=== PATIENT | female | born 2005 | race Caucasian/White ===

== ENCOUNTER 2023-09-27 13:05 | Outpatient (REF) | payer OTHER, SELFPAY ==
[2023-09-27 13:08] LABS: MANUAL DIFF FLAG NO
[2023-09-27 13:13] LABS: Appearance Urine Clear; Color Urine Yellow; Glucose Urine UA Negative (Negative); Leukocyte Esterase Urine Negative (Negative); Nitrite Urine Negative (Negative); PH 7.5 (5.0-9.0); Specific Gravity - Urine 1.015 (1.005-1.025); Urine Blood Negative (Negative); Urine Ketones Negative (Negative); Urine Protein Negative (Neg-Trace)
[2023-09-27 13:14] LABS: Basophils Absolute Auto 0.1 X10*3/uL (0.0-0.2); Basophils Percent Auto 1.1 % (0-2); Eosinophils Absolute Auto 0.1 X10*3/uL (0.0-0.4); Eosinophils Percent Auto 3.2 % (0-4); Hematocrit 37.7 % (37.0-47.0); Hemoglobin 11.8 g/dl (12.0-16.0); Imm Gran Abs Auto 0.01 X10*3/uL (0.00-0.03); Imm Gran Pct Auto 0.2 % (0.0-0.4); Lymphocytes Absolute Auto 1.5 X10*3/uL (1.2-4.9); Lymphocytes Percent Auto 34.9 % (20-40); Mean Corpuscular HGB Conc 31.3 g/dl (31.0-35.0); Mean Corpuscular Hemoglobin 25.9 pg (27.0-33.0); Mean Corpuscular Volume 82.7 fL (80.0-98.0); Mean Platelet Volume 10.8 fL (9.4-12.3); Monocytes Absolute Auto 0.4 X10*3/uL (0.1-1.2); Monocytes Percent Auto 8.9 % (2-11); Neutrophils Absolute Auto 2.3 x10*3/uL (2.0-8.3); Neutrophils Percent Auto 51.7 % (45-73); Platelet Count 267 X10*3/uL (160-400); Red Blood Count 4.56 X10*6/uL (4.20-5.50); Red Cell Distribution Width 14.5 % (11.0-16.0); White Blood Count 4.4 X10*3/uL (4.8-10.8)
[2023-09-27 13:44] LABS: Alanine Aminotransferase 11 U/L (0-31); Albumin Level 4.5 g/dL (3.5-5.0); Alkaline Phosphatase 41 U/L (39-117); Anion Gap 13 (12-20); Aspartate Amino Transferase 19 U/L (5-31); Bilirubin Total 0.5 mg/dL (0.0-1.0); Blood Urea Nitrogen 11 mg/dL (9-16); Calcium 9.9 mg/dL (8.4-10.2); Carbon Dioxide 24 mmol/L (22-29); Chloride 105 mmol/L (96-108); Estimated Glomerular Filt Rate > 60; Glucose Fasting 87 mg/dL (60-99); Potassium 4.2 mmol/L (3.3-5.1); Sodium 138 mmol/L (135-145); Total Protein 7.8 g/dL (6.5-8.0)
[2023-09-27 13:59] LABS: TSH reflex Free T4 1.07 uIU/mL (0.32-4.0)
== END 2023-09-27 13:06 | disposition home or self-care (01) ==
LOC: HO.LNP 13:05
PROVIDERS: Visit Provider Internal Medicine
DX: F41.9 Anxiety disorder, unspecified (principal)
CPT/HCPCS: 80053; 81003; 84443; 85025

== ENCOUNTER 2023-11-29 12:22 | Outpatient (REF) | payer OTHER, SELFPAY ==
[2023-11-29 12:25] LABS: MANUAL DIFF FLAG NO
[2023-11-29 12:38] LABS: Basophils Percent Auto 0.5 % (0-2); Eosinophils Absolute Auto 0.3 X10*3/uL (0.0-0.4); Eosinophils Percent Auto 4.8 % (0-4); Hematocrit 33.9 % (37.0-47.0); Hemoglobin 10.6 g/dl (12.0-16.0); Imm Gran Abs Auto 0.01 X10*3/uL (0.00-0.03); Imm Gran Pct Auto 0.2 % (0.0-0.4); Lymphocytes Absolute Auto 2.5 X10*3/uL (1.2-4.9); Lymphocytes Percent Auto 44.1 % (20-40); Mean Corpuscular HGB Conc 31.3 g/dl (31.0-35.0); Mean Corpuscular Hemoglobin 26.5 pg (27.0-33.0); Mean Corpuscular Volume 84.8 fL (80.0-98.0); Mean Platelet Volume 10.5 fL (9.4-12.3); Monocytes Absolute Auto 0.4 X10*3/uL (0.1-1.2); Monocytes Percent Auto 7.3 % (2-11); Neutrophils Absolute Auto 2.4 x10*3/uL (2.0-8.3); Neutrophils Percent Auto 43.1 % (45-73); Platelet Count 241 X10*3/uL (160-400); Red Cell Distribution Width 14.6 % (11.0-16.0); White Blood Count 5.6 X10*3/uL (4.8-10.8)
== END 2023-11-29 12:23 | disposition home or self-care (01) ==
LOC: HO.LNP 12:22
PROVIDERS: Visit Provider Internal Medicine
DX: D72.819 Decreased white blood cell count, unspecified (principal)
CPT/HCPCS: 85025

== ENCOUNTER 2023-12-06 11:43 | Outpatient (REF) | payer OTHER, SELFPAY ==
[2023-12-06 11:47] LABS: MANUAL DIFF FLAG NO
[2023-12-06 11:50] LABS: Basophils Percent Auto 0.6 % (0-2); Eosinophils Absolute Auto 0.2 X10*3/uL (0.0-0.4); Eosinophils Percent Auto 4.1 % (0-4); Hematocrit 36.9 % (37.0-47.0); Hemoglobin 11.4 g/dl (12.0-16.0); Imm Gran Abs Auto 0.01 X10*3/uL (0.00-0.03); Imm Gran Pct Auto 0.2 % (0.0-0.4); Lymphocytes Absolute Auto 1.9 X10*3/uL (1.2-4.9); Lymphocytes Percent Auto 41.4 % (20-40); Mean Corpuscular HGB Conc 30.9 g/dl (31.0-35.0); Mean Corpuscular Hemoglobin 26.1 pg (27.0-33.0); Mean Corpuscular Volume 84.6 fL (80.0-98.0); Mean Platelet Volume 10.7 fL (9.4-12.3); Monocytes Absolute Auto 0.4 X10*3/uL (0.1-1.2); Monocytes Percent Auto 8.8 % (2-11); Neutrophils Absolute Auto 2.1 x10*3/uL (2.0-8.3); Neutrophils Percent Auto 44.9 % (45-73); Platelet Count 283 X10*3/uL (160-400); Red Blood Count 4.36 X10*6/uL (4.20-5.50); Red Cell Distribution Width 14.2 % (11.0-16.0); White Blood Count 4.7 X10*3/uL (4.8-10.8)
[2023-12-06 12:08] LABS: Iron 58 mcg/dL (30-160); Percent Iron Saturation 16 % (15-50); Total Iron Binding Capacity 358 mcg/dL (228-428); Unsaturated Iron Binding 300 ug/dL
== END 2023-12-06 11:44 | disposition home or self-care (01) ==
LOC: HO.LNP 11:43
PROVIDERS: Visit Provider Internal Medicine
DX: D64.9 Anemia, unspecified (principal)
CPT/HCPCS: 83540; 85025

== ENCOUNTER 2024-04-03 15:14 | Outpatient (REF) | payer OTHER, SELFPAY ==
--- OUTSIDE RECORDS SUMMARY | 2024-04-03 19:01 | XMS_ITS | Patient Health Record ---
Author Organization Primo Acuna MD Address [address] [place], [place] [address] Care Team Providers Care Crankshaft Balancer Name Role Phone Primo Acuna Primary Care Provider [phone] Allergies No Known Allergies Results Component Value Reference Range Notes Urinalysis Reviewed date:09/27/2023 04:43:34 PM Interpretation: Performing Lab:[facility], [address] [place] [phone] Notes/Report: Color Urine Yellow Appearance Urine Clear PH 7.5 5.0-9.0 Glucose Urine UA Negative Negative mg/dL Urine Blood Negative Negative Specific Col[place]idge - Urine 1.015 1.005-1.025 Urine Protein Negative Neg-Trace mg/dL Urine Ketones Negative Negative mg/dL Nitrite Urine Negative Negative Leukocyte Esterase Urine Negative Negative Hold Gold Reviewed date:09/27/2023 04:42:17 PM Interpretation: Performing Lab:[facility], [address] [place] [phone] Notes/Report: Seymour Gold See Note Specimen held untested for 24 hours; Call to request Chemistry testing. Complete Blood Count Auto Di ff Reviewed date:09/30/2023 08:43:20 AM Interpretation: Performing Lab:[facility], [address] [place] [phone] Notes/Report: White Blood Count 4.4 4.8-10.8 X10*3/uL Red Blood Count 4.56 4.20-5.50 X10*6/uL Hemoglobin 11.8 12.0-16.0 g/dl Hematocrit 37.7 37.0-47.0 % Mean Corpuscular Volume 82.7 80.0-98.0 fL Mean Corpuscular Hemoglobin 25.9 27.0-33.0 pg Mean Corpuscular HGB Conc 31.3 31.0-35.0 g/dl Red Cell Distribution Width 14.5 11.0-16.0 % Platelet Count 267 160-400 X10*3/uL Mean Platelet Volume 10.8 9.4-12.3 fL Neutrophils Percent Auto 51.7 45-73 % Imm Gran Pct Auto 0.2 0.0-0.4 % Lymphocytes Percent Auto 34.9 20-40 % Monocytes Percent Auto 8.9 2-11 % Eosinophils Percent Auto 3.2 0-4 % Basophils Percent Auto 1.1 0-2 % NRBC Pct Auto 0.0 0.0-0.2 /100WBC Neutrophils Absolute Auto 2.3 2.0-8.3 x10*3/u L Imm Gran Abs Auto 0.01 0.00-0.03 X10*3/uL Lymphocytes Absolute Auto 1.5 1.2-4.9 X10*3/u L Monocytes Absolute Auto 0.4 0.1-1.2 X10*3/uL Eosinophils Absolute Auto 0.1 0.0-0.4 X10*3/u L Basophils Absolute Auto 0.1 0.0-0.2 X10*3/uL NRBC Abs Auto 0.000 0.0-0.012 X10*3/uL Comprehensive [place]. Panel Fa st Reviewed date:09/27/2023 04:43:49 PM Interpretation: Performing Lab:[facility], [address] [place] [phone] Notes/Report: Sodium 138 135-145 mmol/L Potassium 4.2 3.3-5.1 mmol/L Chloride 105 96-108 mmol/L Carbon Dioxide 24 22-29 mmol/L Anion Gap 13 12-20 Blood Urea Nitrogen 11 9-16 mg/dL Creatinine 0.84 0.5-1.4 mg/dL Estimated Glomerular Filt Rate > 60 NOTE: For -Gabonese individuals, multiply the result by 1.210. Chronic Kidney Disease: Estimated GFR < 60 mL/min/1.73m2 Severe Kidney Disease: Estimated GFR < 15 mL/min/1.73m2 Glucose Fasting 87 60-99 mg/dL Calcium 9.9 8.4-10.2 mg/dL Bilirubin Total 0.5 0.0-1.0 mg/dL Aspartate Amino Transferase 19 5-31 U/L Alanine Aminotransferase 11 0-31 U/L Total Protein 7.8 6.5-8.0 g/dL Albumin Level 4.5 3.5-5.0 g/dL Alkaline Phosphatase 41 39-117 U/L TSH reflex Free T4 Reviewed date:09/27/2023 04:43:56 PM Interpretation: Performing Lab:[facility], [address] [place] [phone] Notes/Report: TSH reflex Free T4 1.07 0.32-4.0 uIU/mL Complete Blood Count Auto Di ff Reviewed date:12/02/2023 09:47:15 AM Interpretation: Performing Lab:[facility], [address] [place] [phone] Notes/Report: White Blood Count 5.6 4.8-10.8 X10*3/uL Red Blood Count 4.00 4.20-5.50 X10*6/uL Hemoglobin 10.6 12.0-16.0 g/dl Hematocrit 33.9 37.0-47.0 % Mean Corpuscular Volume 84.8 80.0-98.0 fL Mean Corpuscular Hemoglobin 26.5 27.0-33.0 pg Mean Corpuscular HGB Conc 31.3 31.0-35.0 g/dl Red Cell Distribution Width 14.6 11.0-16.0 % Platelet Count 241 160-400 X10*3/uL Mean Platelet Volume 10.5 9.4-12.3 fL Neutrophils Percent Auto 43.1 45-73 % Imm Gran Pct Auto 0.2 0.0-0.4 % Lymphocytes Percent Auto 44.1 20-40 % Monocytes Percent Auto 7.3 2-11 % Eosinophils Percent Auto 4.8 0-4 % Basophils Percent Auto 0.5 0-2 % NRBC Pct Auto 0.0 0.0-0.2 /100WBC Neutrophils Absolute Auto 2.4 2.0-8.3 x10*3/u L Imm Gran Abs Auto 0.01 0.00-0.03 X10*3/uL Lymphocytes Absolute Auto 2.5 1.2-4.9 X10*3/u L Monocytes Absolute Auto 0.4 0.1-1.2 X10*3/uL Eosinophils Absolute Auto 0.3 0.0-0.4 X10*3/u L Basophils Absolute Auto 0.0 0.0-0.2 X10*3/uL NRBC Abs Auto 0.000 0.0-0.012 X10*3/uL Complete Blood Count Auto Di ff Reviewed date:12/06/2023 12:13:30 PM Interpretation: Performing Lab:[facility], [address] [place] [phone] Notes/Report: White Blood Count 4.7 4.8-10.8 X10*3/uL [...] PROFILE Reviewed date:12/06/2023 12:13:08 PM Interpretation: Performing Lab:[facility], [address] [place] [phone] Notes/Report: Iron 58 30-160 mcg/dL Total Iron Binding Capacity 358 228-428 mcg/d L Percent Iron Saturation 16 15-50 % Unsaturated Iron Binding 300 Reason For Referral No Information Medications Medication SIG (Take, Route, Fr equency, Duration) Notes Start Date End Date Status Melatonin 10 MG as directed Orally Active Social History Tobacco Use: Social History Observation Description Date Details (start date - stop date) Never Smoker NA - NA Tobacco Use/Smoking Question Answer Notes Patient is a nonsmoker Additional Findings: Tobacco Non-User Cu rrent non-smoker, currently using no form of tobacco Alcohol Screen Question Answer Notes Did you have a drink containing alcohol in the p ast year? No Points 0 Interpretation Negative Section Notes: has pains in various places not in joints but in muscles. not always in the same spot. is there to a degree. Problems Problem Type SNOMED Code ICD Code Onset Dates Problem Status W/U Status Risk Notes Problem 32201946 Anxiety (F41.9) Active confirmed Problem 51157728 Leukopenia, unspecified type (D72.819) Active confirmed Vital Signs Blood pressure diastolic 66 mm Hg 04/03/2024 jameel ght is down 6 pounds since 09-27-23 Height 68 in 04/03/2024 weight is down 6 pounds since 09-27-23 Blood pressure systolic 112 mm Hg 04/03/2024 weig ht is down 6 pounds since 09-27-23 Weight 137 lbs 04/03/2024 weight is down 6 pounds since 09-27-23 BMI 20.83 kg/m2 04/03/2024 weight is down 6 pounds since 09-27-23 Encounters Encounter Location Date Provider Diagnosis Primo Acuna MD [address] [place] [phone] 11/29/2023 Primo Acuna Leukopenia, unspecified type D72.819 Primo Acuna MD [address] [place] [id number] 12/06/2023 Primo Acuna Anemia D64.9 Primo Acuna MD [address] [place] [phone] 09/27/2023 Primo Armand Anxiety F41.9 and Chronic depression F32.A Primo Acuna MD [address] [place] [address] Drive [address] [place] [phone] 04/03/2024 Primo Acuna Anxiety F41.9 ; Leukopenia, unspecified type D72.819 and Myalgia M79.10 Assessments Encounter Date Diagnosis (ICD Code) Assessment Notes Treatment Notes Treatment Clinical Notes Section Notes 11/29/2023 Leukopenia, unspecified type (ICD-10 - D72.819) 12/06/2023 Anemia (ICD-10 - D64.9) 09/27/2023 Anxiety (ICD-10 - F41.9) 09/27/2023 Chronic depression (ICD-10 - F32.A) had been seeing a therapist and didn't feel the telemedicine 04/03/2024 Anxiety (ICD-10 - F41.9) stable. has opportunity to get conselling at school 04/03/2024 Leukopenia, unspecified type (ICD-10 - D72.819) is doing fine 04/03/2024 Myalgia (ICD-10 - M79.10) Plan Of Treatment Pending Test Test Name Order Date Tick-borne Disease Molecular 04/03/2024 Next Appt Details Provider Name:Primo Garcia ier, 09/24/2024 07:00:00 AM, [address] [place] [address], [address], [phone], Provider Name:Primo Garcia ier, 10/01/2024 10:30:00 AM, [address] [place] [address], [address], [phone], Insurance Providers Payer Name Payer Address Payer Phone Subscriber Number Group Number Insured Name Patient Relationship to Insured Coverage Start Date Coverage End Date PASQUALE BABIN [id number] JADA Alan [id number] Kandis Hayden Self - patient is the insured
--- OUTSIDE RECORDS SUMMARY | 2024-04-03 19:01 | XMS_ITS ---
Author Organization Primo Acuna MD Address [address] [place], [place] [phone] Care Team Providers Care Cereal Popper Name Role Phone Primo Acuna Primary Care Provider Results Component Value Reference Range Notes Complete Blood Count Auto Di ff Reviewed date:12/02/2023 09:47:15 AM Interpretation: Performing Lab:[facility], [address] [place] [phone] Notes/Report: White Blood Count 5.6 4.8-10.8 X10*3/uL [...] X10*3/uL NRBC Abs Auto 0.000 0.0-0.012 X10*3/uL REASON FOR VISIT CBC low WBC Problems Problem Type SNOMED Code ICD Code Onset Dates Problem Status W/U Status Risk Notes Problem 00323710 Leukopenia, unspecified type (D72.819) Active confirmed Encounters Encounter Location Date Provider Diagnosis Primo Acuna MD [address] [place] [phone] 11/29/2023 Primo Acuna Leukopenia, unspecified type D72.819 Assessments Encounter Date Diagnosis (ICD Code) Assessment Notes Treatment Notes Treatment Clinical Notes Section Notes 11/29/2023 Leukopenia, unspecified type (ICD-10 - D72.819) Plan Of Treatment Next Appt Details Provider Name:Primo shay, 09/24/2024 07:00:00 AM, [address] [place] [address], [phone], Provider Name:Primo shay, 10/01/2024 10:30:00 AM, [address] [place] [address], [phone], Progress Notes * Gennaro CARBALLOOB:2005 ( 18 yo F)Acc No.[id number]:11/29/2023 Progress Note Patient:?Kandis Carballo Provider:?Primo Acuna MD :2005???Age:18 Y???Sex:Female D ate:11/29/2023 Address:[address] [place], [place] [phone] Subjective: * Chief Complaints: * ???CBC low WBC * Medical History:? * Surgical History:? * Hospitalization/Major Diagno stic Procedure:? * Medications:? Objective: Assessment: * Assessment: 1.?Leukopenia, unspecified t ype - D72.819 (Primary)? Plan: * Treatment: * Procedure Codes:?56805 VENIP UNCT, ROUTINE* * * Sign off status: Completed true * Provider:?Primo Acuna MD Date:?1 Generated for Giulia luna/Rico/eTransmitting on:?04/03/2024 07:01 PM EST
--- OUTSIDE RECORDS SUMMARY | 2024-04-03 19:02 | XMS_ITS ---
Author Organization Primo Acuna MD Address [address] [place], [place] [id number] Care Team Providers Care Line O Scribe Operator Name Role Phone Primo Acuna Primary Care Provider Results Component Value Reference Range Notes Complete Blood Count Auto Di ff Reviewed date:12/06/2023 12:13:30 PM Interpretation: Performing Lab:[facility], [address] [place] [phone] Notes/Report: White Blood Count 4.7 4.8-10.8 X10*3/uL [...] PROFILE Reviewed date:12/06/2023 12:13:08 PM Interpretation: Performing Lab:[facility], [address] [place] [phone] Notes/Report: Iron 58 30-160 mcg/dL Total Iron Binding Capacity 358 228-428 mcg/d L Percent Iron Saturation 16 15-50 % Unsaturated Iron Binding 300 REASON FOR VISIT TIBC CBC Encounters Encounter Location Date Provider Diagnosis Primo Acuna MD [address] [place] [address] [place] [phone] 12/06/2023 Primo Acuna Anemia D64.9 Assessments Encounter Date Diagnosis (ICD Code) Assessment Notes Treatment Notes Treatment Clinical Notes Section Notes 12/06/2023 Anemia (ICD-10 - D64.9) Plan Of Treatment Next Appt Details Provider Name:Primo shay, 09/24/2024 07:00:00 AM, [address] [place] [address], [phone], Provider Name:Primo shay, 10/01/2024 10:30:00 AM, [address] [place] [address], [phone], Progress Notes * Gennaro CARBALLOOB:2005 ( 19 yo F)Acc No.[id number]:12/06/2023 Progress Note Patient:?Kandis CARBALLO Provider:?Primo Acuna MD :2005???Age:18 Y???Sex:Female D ate:12/06/2023 Address:[address] [place] [address] , [id number] Subjective: * Chief Complaints: * ???1. TIBC CBC. * Medical History:? Objective: * Vitals:? Assessment: * Assessment: 1.?Anemia - D64.9 (Primary)? ?? Plan: * Treatment: * Procedure Codes:?62765 VENIP UNCT, ROUTINE* * * The named appointment provid er may or may not be the originator of this progress note, and it is not deemed complete until electronically signed by the appointment provider. Sign off status: Pending * Provider:?Primo Acuna MD Date:?1 Generated for Giulia luna/Rico/Valentinitting on:?04/03/2024 07:01 PM EST
--- OUTSIDE RECORDS SUMMARY | 2024-04-03 19:02 | XMS_ITS | Clinical Summary ---
Author Organization [facility] Address [address] [place] [address] Care Team Providers Care Pecan Sheller Name Role Phone Unavailable Primary Care Provider Unavailabl e Immunizations Name Administration Dates Next Due COVID-19, mRNA (Pfizer Pre F all 2022) Monovalent, 30 mcg/0.3 ml 06/18/2020,05/28/2020 Covid-19, mRNA (Pfizer Pre F all 2022) Monovalent, 30 mcg/0.3 ml vanessa-sucrose (12+) 07/27/2021 HPV9 (Gardasil 9) 09/29/2016,03/05/2016 Hep A (pedi) 03/27/2018,03/14/2017 Hep B - 2003,2003,2003 Hib - 04/29/2004, 4,2003,03/21 IPV 2007, 4,2003,03/21 Influenza,injectable,quad,Prsrv Fr 11/14/2019,,11/21/2017 Influenza,injectable,quad,preservative 8,02/13/2016 Influenza,live,intranasal,quad 04/03/2015 MMRV (Proquad) 01/15/2008 Meningococcal ACWY (Menactra) 12/19/2019, 016 Tdap 04/03/2015 Social History Tobacco Use Types Packs/Day Years Used Date Smoking Tobacco: Never Assessed Intimate Partner Violence Answer Date R ecorded Fear of Current or Ex-Partner Not on file Emotionally Abused Not on file 12/23/2022 Physically Abused Not on file 12/23/2022 Sexually Abused Not on file 12/23/2022 Feel Safe at Home Not on file 12/23/2022 Comments Unknown Sex and Gender Information Value Date Recorded Sex Assigned at Not on file Legal Sex Female 12:54 PM EST Gender Identity Male 12/23/2022 12:55 PM EST Sexual Orientation Not on file Plan of Treatment Health Maintenance Due Date Last Done Comments Hepatitis C Screening 2005 Varicella (2 of 2 - 2-dose childhood series) 05/01/2015 01/15/2008 Chlamydia 2019 Pap Smear 2019 COVID-19 Vaccine ( season) 2023 07/27/2021, 06/18/2020, 05/28/2020 Influenza (#1) 2023 11/14/2019, 07/2019, 11/21/2017, Additional history exists DTaP/Tdap/Td (2 - Td or Tdap) 04/03/2025 04/03/2015 Zoster (Shingrix) (1 of 2) 2053 01/15/2008 Hep B Completed 2003, 02/07, 2003 Hib Completed 04/29/2004, 07/09, 2003, Additional history exists Polio (IPV/OPV) Completed 2007, 09/2003, 2003, Additional history exists MMR Completed 01/15/2008 HPV Vaccine Completed 09/29/2016, 03/05/2016 Hep A Completed 03/27/2018, 03/14/2017 Meningococcal ACWY Completed 12/19/2019, 04/03/2015 Chest Imaging Discontinued 12/23/2022 Pneumococcal Aged Out No longer eligi ble based on patient's age to complete this topic Procedures * Due to [place] [employer] law, this organization might not be sharing negative HIV tests. Procedure Name Priority Date/Time Associated Diagnosis Comments XRAY CHEST, 2 VIEWS, PA & LATERAL FC Routine 12/23/2022 1:10 PM EST Subacute cough from Last 3 Months or Most Recently Relevant to Health Maintenance Results * Due to [place] [employer] law, this organization might not be sharing negative HIV tests. * XRAY CHEST, 2 VIEWS, PA & LATERAL FC (12/23/2022 1:10 PM EST) Anatomical Region Laterality Modality CHEST Radiographic Kayla ging 12/23/2022 1:30 PM EST Narrative 12/23/2022 1:30 PM EST CONTRAST: EXAM: ??CHEST, PA AND LATERAL Comparison: None FINDINGS: Frontal and lateral views of the chest show no evidence of air space consolidation. Bronchial wall thickening. There is no pneumothorax, pleural effusion, or congestive changes. The cardiovascular silhouette is normal. No free air is seen beneath the diaphragm. The visualized soft tissue and osseous structures are unremarkable. IMPRESSION: Bronchial wall thickening suggesting bronchitis. Procedure Note Shira Jim MD - 12/23/2022 CONTRAST: EXAM: CHEST, PA AND LATERAL Comparison: None FINDINGS: Frontal and lateral views of the chest show no evidence of air space consolidation. Bronchial wall thickening. There is no pneumothorax,pleural effusion, or congestive changes. The cardiovascular silhouette is normal.No free air is seen beneath the diaphragm. The visualized soft tissue andosseous structures are unremarkable. IMPRESSION: Bronchial wall thickening suggesting bronchitis. Jin Chacon CUSTOMER MANAGER IMG XRAY NO CONTRAST ORDERABLES Final Result from Last 3 Months or Most Recently Relevant to Health Maintenance Insurance [employer]
--- OUTSIDE RECORDS SUMMARY | 2024-04-03 19:02 | XMS_ITS ---
Author Organization Primo Acuna MD Address [address] [place] [phone] Care Team Providers Care Metallurgical Engineering Teacher Name Role Phone Primo Acuna Primary Care Provider [phone] Allergies No Known Allergies REASON FOR VISIT 6 month Medications Medication [...] kg/m2 04/03/2024 weight is down 6 pounds [facility] e 09-27-23 Encounters Encounter Location Date Provider Diagnosis Primo Acuna MD [address] [place] [phone] 04/03/2024 Primo Acuna Anxiety F41.9 ; Leukopenia, [...] has opportun ity to get conselling at school Leukopenia, unspecified type is doing fi ne Pending Test Test Name Order Date Tick-borne Disease Molecular 04/03/2024 Next Appt Details Provider Name:Primo Garcia ier, 09/24/2024 07:00:00 AM, [address], [address], [place], [place], [phone], Provider Name:rPimo Garcia ier, 10/01/2024 10:30:00 AM, [address] [facility], [address], [place], [place], [phone], Progress Notes * Gennaro CARBALLOOB:2005 ( 19 yo F)Acc No.[id number]:04/03/2024 Progress Notes Patient:?Kandis CARBALLO Provider:?Primo Acuna MD :2005???Age:19 Y???Sex:Female D ate:04/03/2024 Address:[address] [place] [address] [facility] Subjective: * Chief Complaints: * ???1. 6 month. * HPI: ???Symptom(s):?patient is a 19 yo female here for 6 month follow up visit, not getting any therapy. depression if about the same.? not going to [facility]. going to [facility].? working at [employer]. may get counselling at [facility]. * ROS:?General/Constitutional:?Denies?Chills.?Denies?Fatigue.?Denies?Fever.?Denies?Headache.?ENT:?Patient denies?decreased sense of smell, any loss of taste, sore throat.?Denies?Sore throat.?Respiratory:?Denies?Cough.?Denies?Shortness of breath at rest.?Denies?Shortness of breath with exertion.?Gastrointestinal:?Denies?Diarrhea.?Denies?Nausea.?Musculoskeletal:?Patient denies?muscle aches.?Peripheral Vascular:?Patient denies?red and blue toes.? * Medical History:?Medical His tory Verified. * Social History:?Tobacco Use:?Tobacco Use/Smoking?Patient is a?nonsmoker,?Additional Findings: Tobacco Non-User?Current non-smoker, currently using no form of tobacco.?has pains in various places not in joints but in muscles. not always in the same spot. is there to a degree. * Medications:?Taking Melatoni n 10 MG Capsule as directed Orally , Medication List reviewed and reconciled with the patient * Allergies:?N.K.D.A. Objective: * Vitals:?Ht: 68, Wt: 137, BMI :20.83, BP:112/66, Wt-k.14. weight is down 6 pounds since? 09-27-23. * Examination: ???General Examination: ?GENERAL APPEARANCE:?alert, well hydrated, in no distress.?HEAD:?normocephalic.?SKIN:?good turgor.?HEART:?no murmurs, rubs, gallops, regular rate and rhythm.?LUNGS:?no wheezes, rales, rhonchi, good air movement, clear to auscultation bilaterally.? Assessment: * Assessment: 1.?Anxiety - F41.9 (Primary) ???2.?Leukopenia, unspecified type - D72.819???3.?Myalgia - M79.10??? Plan: * Treatment: 2.?Leukopenia, unspecified t ype? Notes: is doing fine?? * Procedure Codes:?97721 VENIP UNCT, ROUTINE* * * The named appointment provid er may or may not be the originator of this progress note, and it is not deemed complete until electronically signed by the appointment provider. Sign off status: Pending * Provider:?Primo Acuna MD Date:?0 04/03/2024 Generated for Giulia luna/Rico/Valentinitting on:?04/03/2024 07:01 PM EST History and Physical Notes * HPI (History of Present Illness) Category Sub-Category Detail Notes Category Not es Symptom(s) patient is a 19 yo female here for 6 month follow up visit, not getting any therapy. depression if about the same. not going to [facility]. going to [facility]. working at [employer]. may get counselling at [facility]. Examination Category Sub-Category Detail Notes Category Not es General Examination GENERAL APPEARANCE: alert, w ell hydrated, in no distress HEAD: normocephalic HEART: no murmurs, rubs, ga llops, regular rate and rhythm LUNGS: no wheezes, rales, r honchi, good air movement, clear to auscultation bilaterally SKIN: good turgor
[2024-04-04 21:09] LABS: A. Phagocytphilium DNA,RT-PCR NOT DETECTED (NOT DETECTED); Babesia Microti DNA, RT-PCR NOT DETECTED (NOT DETECTED); Borrelia Miyamotoi,DNA RT-PCR NOT DETECTED (NOT DETECTED); E.Chaffeensis DNA RT-PCR NOT DETECTED (NOT DETECTED); Lyme(Borrelia ssp)DNA RT-PCR NOT DETECTED (NOT DETECTED)
== END 2024-04-03 15:15 | disposition home or self-care (01) ==
LOC: HO.LNP 15:14
PROVIDERS: Visit Provider Internal Medicine
DX: F41.9 Anxiety disorder, unspecified (principal)
CPT/HCPCS: 87468; 87469; 87478; 87484; 87798

== ENCOUNTER 2024-09-24 07:00 | Outpatient (REF) | payer OTHER, SELFPAY ==
[2024-09-24 10:56] LABS: MANUAL DIFF FLAG NO
[2024-09-24 11:03] LABS: Appearance Urine Clear; Glucose Urine UA Negative (Negative); Hematocrit 33.6 % (37.0-47.0); Hemoglobin 10.3 g/dl (12.0-16.0); Imm Gran Abs Auto 0.01 X10*3/uL (0.00-0.03); Imm Gran Pct Auto 0.3 % (0.0-0.4); Lymphocytes Absolute Auto 1.8 X10*3/uL (1.2-4.9); Mean Corpuscular HGB Conc 30.7 g/dl (31.0-35.0); Mean Corpuscular Hemoglobin 25.8 pg (27.0-33.0); Mean Corpuscular Volume 84.0 fL (80.0-98.0); NRBC Abs Auto 0.000 X10*3/uL (0.0-0.012); NRBC Pct Auto 0.0 /100WBC (0.0-0.2); PH 5.5 (5.0-9.0); Platelet Count 197 X10*3/uL (160-400); Red Blood Count 4.00 X10*6/uL (4.20-5.50); Specific Gravity - Urine 1.025 (1.005-1.025); White Blood Count 4.0 X10*3/uL (4.8-10.8)
[2024-09-24 11:33] LABS: Alanine Aminotransferase 14 U/L (0-31); Albumin Level 4.5 g/dL (3.5-5.0); Alkaline Phosphatase 42 U/L (39-117); Anion Gap 10 (12-20); Aspartate Amino Transferase 23 U/L (5-31); Blood Urea Nitrogen 13 mg/dL (9-16); Calcium 9.0 mg/dL (8.4-10.2); Carbon Dioxide 28 mmol/L (22-29); Chloride 106 mmol/L (96-108); Cholesterol 178 mg/dL (<200); Estimated Glomerular Filt Rate > 60; HDL Cholesterol 91 mg/dL (>40); Potassium 4.0 mmol/L (3.3-5.1); Sodium 140 mmol/L (135-145); Total Protein 7.1 g/dL (6.5-8.0); Triglycerides 40 mg/dL (<150)
--- OUTSIDE RECORDS SUMMARY | 2024-09-24 12:02 | XMS_ITS | Clinical Summary ---
Author Organization [facility] Address [address] [place] [address] Care Team Providers Care Ecological Technical Officer Name Role Phone Unavailable Primary Care Provider Unavailabl e Immunizations Immunization Administration Dates Next Due COVID-19, mRNA (Pfizer [...] season) 2023 07/27/2021, 06/18/2020, 05/28/2020 Influenza (#1) 2024 11/14/2019, 07/2019, 11/21/2017, Additional history exists DTaP/Tdap/Td [...] complete this topic Procedures * Due to [place] [employer] law, this organization might not be sharing negative HIV tests. Procedure Name Priority Date/Time Associated Diagnosis Comments XRAY CHEST, 2 VIEWS, PA & LATERAL FC Routine 12/23/2022 1:10 PM EST Subacute cough from Last 3 Months or Most Recently Relevant to Health Maintenance Results * Due to [place] [employer] law, this organization might not be sharing negative HIV tests. * XRAY CHEST, 2 VIEWS, PA & LATERAL FC (12/23/2022 1:10 PM EST) Anatomical Region Laterality Modality CHEST Radiographic Kayla ging 12/23/2022 1:30 PM EST Narrative 12/23/2022 1:30 PM EST CONTRAST: EXAM: CHEST, PA AND LATERAL Comparison: [...] Bronchial wall thickening suggesting bronchitis. Jin Chacon YARD COUPLER IMG XRAY NO CONTRAST ORDERABLES Final Result from Last 3 Months or Most Recently Relevant to Health Maintenance Insurance [facility]
--- OUTSIDE RECORDS SUMMARY | 2024-09-24 12:02 | XMS_ITS | Patient Health Record ---
Author Organization Primo Acuna MD Address [address] [place], [place] [id number] Care Team Providers Care Pipe Changer Name Role Phone Primo Acuna Primary Care Provider Allergies No Known Allergies Results Component Value Reference Range Notes Urinalysis Reviewed date:09/27/2023 04:43:34 PM Interpretation: Performing Lab:[facility], [address] [place] [phone] Notes/Report: Color Urine Yellow Appearance Urine Clear PH 7.5 5.0-9.0 Glucose Urine UA Negative Negative mg/dL Urine Blood Negative Negative Specific [place] - Urine 1.015 1.005-1.025 Urine Protein Negative Neg-Trace mg/dL Urine Ketones Negative Negative mg/dL Nitrite Urine Negative Negative Leukocyte Esterase Urine Negative Negative Hold Gold Reviewed date:09/27/2023 04:42:17 PM Interpretation: Performing Lab:[facility], [address] [place] [phone] Notes/Report: Seymour Gold See Note Specimen held untested for 24 hours; Call to request Chemistry testing. Complete Blood Count Auto Di ff Reviewed date:09/30/2023 08:43:20 AM Interpretation: Performing Lab:[facility], [address] [place] [phone] Notes/Report: White Blood Count 4.4 4.8-10.8 X10*3/uL [...] NRBC Abs Auto 0.000 0.0-0.012 X10*3/uL Comprehensive [place]. Panel Fa st Reviewed date:09/27/2023 04:43:49 PM Interpretation: Performing Lab:[facility], [address] [place] [phone] Notes/Report: Sodium 138 135-145 mmol/L Potassium 4.2 3.3-5.1 mmol/L Chloride 105 96-108 mmol/L Carbon Dioxide 24 22-29 mmol/L Anion Gap 13 12-20 Blood Urea Nitrogen 11 9-16 mg/dL Creatinine 0.84 0.5-1.4 mg/dL Estimated Glomerular Filt Rate > 60 NOTE: For -Indian individuals, multiply the result by 1.210. Chronic [...] T4 Reviewed date:09/27/2023 04:43:56 PM Interpretation: Performing Lab:[facility], [address] [place] [phone] Notes/Report: TSH reflex Free T4 1.07 0.32-4.0 uIU/mL Complete Blood Count Auto Di ff Reviewed date:12/02/2023 09:47:15 AM Interpretation: Performing Lab:[facility], [address] [place] [phone] Notes/Report: White Blood Count 5.6 4.8-10.8 X10*3/uL [...] ff Reviewed date:12/06/2023 12:13:30 PM Interpretation: Performing Lab:[facility], [address] [place] [phone] Notes/Report: White Blood Count 4.7 4.8-10.8 X10*3/uL [...] PROFILE Reviewed date:12/06/2023 12:13:08 PM Interpretation: Performing Lab:[facility], [address] [place] [phone] Notes/Report: Iron 58 30-160 mcg/dL Total Iron Binding Capacity 358 228-428 mcg/d L Percent Iron Saturation 16 15-50 % Unsaturated Iron Binding 300 Tick-borne Disease Molecular Reviewed date:04/05/2024 04:13:42 PM Interpretation: Performing Lab:[facility], [address] [place] [phone] Notes/Report: Babesia Microti DNA, RT-PCR NOT DETECTED NOT DETECTED This test was developed and its analytical performance characteristics have been determined by [employer]. It has not been cleared or approved by the FDA. This assay has been validated pursuant to the CLIA regulations and is used for clinical purposes. THIS TEST WAS PERFORMED AT: [facility] [address] [place] [phone] DELMI LINDQUIST MD E.Chaffeensis DNA RT-PCR NOT DETECTED NOT DETECTED This test was developed and its analytical performance characteristics have been determined by [employer]. It has not been cleared or approved by the FDA. This assay has been validated pursuant to the CLIA regulations and is used for clinical purposes. THIS TEST WAS PERFORMED AT: [facility] [address] [place] [phone] DELMI LINDQUIST MD A. Phagocytphilium DNA,RT-PCR NOT DETECTED NOT DETECTED This test was developed and its analytical performance characteristics have been determined by [employer]. It has not been cleared or approved by the FDA. This assay has been validated pursuant to the CLIA regulations and is used for clinical purposes. Lyme(Borrelia ssp)DNA RT-PCR NOT DETECTED NOT DETECTED This test was developed and its analytical performance characteristics have been determined by [employer]. It has not been cleared or approved by the FDA. This assay has been validated pursuant to the CLIA regulations and is used for clinical purposes. For additional information, please refer to https://education.[employer]/faq/qxe000 (This link is being provided for informational/ educational purposes only.) THIS TEST WAS PERFORMED AT: [facility] [address] [place] [phone] DELMI LINDQUIST MD Borrelia Miyamotoi,DNA RT-PCR NOT DETECTED NOT DETECTED This test was developed and its analytical performance characteristics have been determined by [employer]. It has not been cleared or approved by the FDA. This assay has been validated pursuant to the CLIA regulations and is used for clinical purposes. THIS TEST WAS PERFORMED AT: [facility] [address] [place] [phone] DELMI LINDQUIST MD Tick Mol. Panel Cmmt [...] be indicated. THIS TEST WAS PERFORMED AT: [facility] [address] [place] [phone] DELMI LINDQUITS MD Complete Blood Count Auto Di ff (Not yet reviewed by provider) Interpretation: Performing Lab:[facility], [address] [place] [phone] Notes/Report: White Blood Count 4.0 4.8-10.8 X10*3/uL [...] NRBC Abs Auto 0.000 0.0-0.012 X10*3/uL Comprehensive [place]. Panel Fa st (Not yet reviewed by provider) Interpretation: Performing Lab:[address] [phone] Notes/Report: Sodium 140 135-145 mmol/L Potassium 4.0 [...] Alkaline Phosphatase 42 39-117 U/L Lipid Panel (Not yet reviewe d by provider) Interpretation: Performing Lab:[address] [phone] Notes/Report: Triglycerides 40 <150 mg/dL Desirable Triglyceride: [...] liver disease. UA ClnCatch+Micro w/rflx Cul t (Not yet reviewed by provider) Interpretation: Performing Lab:[facility], [address] [place] [phone] Notes/Report: Urine, Clean Catch Color Urine Yellow Appearance Urine Clear PH 5.5 5.0-9.0 Glucose Urine UA Negative Negative mg/dL Urine Blood Negative Negative Specific [place] - Urine 1.025 1.005-1.025 Urine Protein Negative Neg-Trace mg/dL Urine Ketones Trace Negative mg/dL Nitrite Urine Negative Negative Leukocyte Esterase Urine Negative Negative RBC Urine 0-2 0-2 /HPF WBC Urine 0-5 0-5 /HPF Squamous Epithelial Cell Urine 6-10 0-2 /HPF Bacteria Urine Trace None Seen Hyaline Casts Urine 0-2 0-2 /LPF Reason For Referral No Information Medications Medication [...] same spot. is there to a degree. has pains in various places not in joints but in muscles. not always in the same spot. is there to a degree. Problems Problem Type SNOMED Code ICD Code Onset Dates Problem Status W/U Status Risk Notes Problem 72668365 Anxiety (F41.9) Active confirmed Problem 61544305 Leukopenia, unspecified type (D72.819) Active confirmed Vital [...] Location Date Provider Diagnosis Primo Acuna MD [address] [place] [address] [phone] 09/24/2024 Primo Acuna Blood tests for routine general physical examination Z00.00 and Leukopenia, unspecified type D72.819 Primo Acuna MD [address] [place] [phone] 11/29/2023 Primo Acuna Leukopenia, unspecified type D72.819 Primo Acuna MD [address] [place] [address] [address] [id number] 12/06/2023 Primo Acuna Anemia D64.9 Primo Acuna MD [address] [place] [address] [address] [phone] 09/27/2023 Primo Acuna Anxiety F41.9 and Chronic depression F32.A Primo Acuna MD [address] [place] [phone] 04/03/2024 Primo Acuna Anxiety F41.9 ; Leukopenia, unspecified type D72.819 and Myalgia M79.10 Assessments Encounter Date Diagnosis (ICD Code) Assessment Notes Treatment Notes Treatment Clinical Notes Section Notes 09/24/2024 Blood tests for routine general physical examination (ICD-10 - Z00.00) 11/29/2023 Leukopenia, unspecified type (ICD-10 - D72.819) 12/06/2023 Anemia (ICD-10 - D64.9) 09/27/2023 Anxiety (ICD-10 - F41.9) 09/27/2023 Chronic depression (ICD-10 - F32.A) had been seeing a therapist and didn't feel the telemedicine 04/03/2024 Anxiety (ICD-10 - F41.9) stable. has opportunity to get conselling at school/ is doing well at present 04/03/2024 Leukopenia, unspecified type (ICD-10 - D72.819) is doing fine/ has improved 09/24/2024 Leukopenia, unspecified type (ICD-10 - D72.819) 04/03/2024 Myalgia (ICD-10 - M79.10) Plan Of Treatment Pending Test Test Name Order Date Complete Blood Count Auto Diff 5 Comprehensive [place]. Panel Fast 5 Lipid Panel 09/24/2024 UA ClnCatch+Micro w/rflx Cult 09/24/2024 Next Appt Details Provider Name:Primo shay, 10/01/2024 10:30:00 AM, [address] [place] [address], [address], [place], [place], [phone], Insurance Providers Payer Name Payer Address Payer Phone Subscriber Number Group Number Insured Name Patient Relationship to Insured Coverage Start Date Coverage End Date PASQUALE BABIN [id number] JADA Alan [id number] Kandis Hayden Self - patient is the insured
--- OUTSIDE RECORDS SUMMARY | 2024-09-24 12:02 | XMS_ITS | Encounter Summary ---
Author Organization [facility] Address [address] [place] [address] Phone Care Team Providers Care Fixed Income Portfolio Manager Name Role Phone Pcp, Unknown Primary Care Provider UnavailNaomie Quevedo MD Primary Care Provider Pcp, Unknown Unavailable Unavailable Pcp, Unknown Unavailable Unavailable Encounter Details Date Type Department Care Team (Late st Contact Info) Description 03/11/2017 Transcribe Orders [facility] Specimen Processing [address] [place] [address] Lian Cardoza, DISTRESSER [address] [place] [address] [email or web address] Fever and neutropenia (Primary Dx) Social History Tobacco Use Types Packs/Day Years Used Date Smoking Tobacco: Never Assessed Comments Unknown Sex and Gender Information Value Date Recorded Sex Assigned at Not on file Legal Sex Female 9:49 AM EDT Gender Identity Not on file Sexual Orientation Not on file documented as of this encounter Plan of Treatment Not on file documented as of this encounter Results * Rapid influenza A and B (03/11/2017 5:20 PM EST) Influenza A Ag Negative Negative [facility] [facility] Influenza B Ag Negative Negative [facility] [facility] [facility] Other (Nasal) 03/11/2017 5:2 0 PM EST 03/11/2017 5:22 PM EST Lian Cardoza DISTRESSER MICROBIOLOGY - GENERAL ORDERA BLES Final Result [facility] [address] [place] [address] documented in this encounter Visit Diagnoses Diagnosis Fever and neutropenia- Primary documented in this encounter Care Teams Fixed Income Portfolio Manager Relationship Specialty Start Date End Date Pcp, Unknown PCP - General 03/11/17 11/24/17 Naomie Richmond MD PCP - General Pediatrics 11/25/17 05/27/20 Pcp, Unknown PCP - Pediatrics 05/27/20 Pcp, Unknown 11/25/17 documented as of this encounter Additional Source Comments The information contained in this document represents components of the legal health record. It is not the complete legal health record.[facility]
--- OUTSIDE RECORDS SUMMARY | 2024-09-24 12:02 | XMS_ITS | Clinical Summary ---
Author Organization [facility] Address [address] [place] [address] Phone Care Team Providers Care General Farm Manager Name Role Phone Unavailable Primary Care Provider Unavailabl e Allergies No known active allergies Medications hydrOXYzine 25 MG tabletIndication s:Panic attacks Take 1 tablet (25 mg total) by mouth every 6 (six) hours as needed for anxiety. 30 tablet 12/11/2021 Active Active Problems Problem Noted Date Diagnosed Date Nausea 01/26/2022 Overview (01/26/2022): Ongoing for years per Kandis Assessment & Plan (01/26/2022 4:50 PM EST): Recommend labs and trial of prilosec Irregular menses 01/26/2022 Overview (01/26/2022): Menarche age 10 she thinks - irregular in terms of interval between periods and also bleeding time + cramping before gets her period alerts her to it Assessment & Plan (01/26/2022 4:51 PM EST): Recommend labs - could be PCOS Insomnia 01/26/2022 Panic attacks 11/27/2020 Overview (11/27/2020): Has a therapist (Martha) at [facility]. Has a prescription for prn hydroxyzine and has not tried it yet. Assessment & Plan (12/11/2021 9:40 AM EDT): Will try prn hydroxyzine as per Kandis's preference. Discussed potential side effects including drowsiness. I encourage her first to try it on a non school day and do timed work to see how she feels. Encourage considering a daily medication such as sertraline. Counseled I do not expect it to take away her motivation and drive to do well as she fears. She will consider and will continue both therapies, on campus and at home. Recheck in one month virtual or in person during her next break in January. Anxiety and depression 11/27/2020 Myopia 11/27/2020 Patellar pain, unspecified laterality 11/27/2020 Immunizations Immunization Administration Dates Next Due DTaP 2007, 5,01/19/2004,07/30,2003 HPV Vaccine 9 Valent 09/29/2016,03/05/2016 Hep A, ped/adol 03/27/2018,03/14/2017 Hep B 2003,2003,2003 HiB 04/29/2004, 4,2003,03/21 IPV 2007, 4,2003,03/21 Influenza, injectable, quadrivalent 03/14/2017,0 02/13/2016 Influenza, injectable, quadr ivalent, preservative free 11/14/2019,02/12/2019,11/21/2017 Influenza, intranasal, quadrivalent 04/03/2015 MMRV 01/15/2008,01/15/2004 Meningococcal Conj (Menactra) MCV4P 12/19/2019,0 04/03/2015 Pneumococcal Conjugate 04/29/2004,2003,01/2004 Tdap 04/03/2015 Family History Medical History Relation Name Comments Tuberculosis Father Uche Carballo +PPD, neg CXR, treated Glaucoma Maternal Grandfather Hyperlipidemia Maternal Grandfather Hypertension Maternal Grandfather Graves' disease Maternal Grandmother Asthma Mother Walt Carballo Food allergies Mother Walt Carballo Hip dysplasia Mother Walt Carballo bilateral h ip replacement Hyperlipidemia Mother Walt Carballo managed wi th diet No Known Problems Paternal Grandfather Colon cancer Paternal Grandmother age 42 Relation Name Status Comments Father Uche Carballo Alive Maternal Grandfather Alive Maternal Grandmother Alive Mother Walt Carballo Alive Paternal Grandfather Alive Paternal Grandmother Social History Tobacco Use Types Packs/Day Years Used Date Smoking Tobacco: Never Assessed Hunger/Food Answer Date Recorded In the last 12 months, did y ou or your family ever eat less than you felt you should because there wasn't enough money for food? No 01/26/2022 Stable Housing Answer Date Recorded Are you worried that in the next 2 months you may not have stable housing? No 01/26/2022 Transportation Concerns Answer Date Rec orded In the last 12 months, have you or your family ever had to go without healthcare because you didn't have a way to get there? No 01/26/2022 Hazards in Home Answer Date Recorded Think about the place you li ve. Do you have problems with any of the following? Pests (mice or roaches), mold, no/not working smoke detectors, water leaks, no window guards. No 2021 Financing Utilities Answer Date Recorde d In the last 12 months, has t he electric, gas, oil, or water company threatened to shut off your services in your home? No 01/26/2022 Safety at Home Answer Date Recorded Are you or your family worried about feeling saf e in your home? No 01/26/2022 Outside Support Answer Date Recorded Do you feel that you need mo re support from other people or programs to help you care for yourself or your family? No 01/26/2022 Understanding Health Concerns Answer Da te Recorded Do you need help understandi ng your or your child's healthcare needs (diagnosis, medications, plan, etc.)? No 01/26/2022 Financing Health Concerns Answer Date R ecorded In the last 12 months, was t here a time when your child needed to see a doctor or get medications or supplies but could not because of cost? No 01/26/2022 Missing School or Work Answer Date Kyle rded Did you or your child miss s chool or work because of a health problem that could have been avoided? No 01/26/2022 Comments No Sex and Gender Information Value Date Recorded Sex Assigned at Not on file Legal Sex Female 2:08 PM EDT Gender Identity Not on file Sexual Orientation Not on file Last Filed Vital Signs Vital Sign Reading Time Taken Comments Blood Pressure 118/60 01/26/2022 1:36 PM EST Pulse 75 01/26/2022 1:36 PM EST Temperature 36.8 C (98.2 F) 11/27/2020 3:42 PM EDT Respiratory Rate - - Oxygen Saturation - - Inhaled Oxygen Concentration - - Weight 66.8 kg (147 lb 3.2 oz) 01/26/2022 1:36 P M EST Height 168.3 cm (5' 6.25 ) 01/26/2022 1:36 PM ES T Body Mass Index 23.58 01/26/2022 1:36 PM EST Plan of Treatment Health Maintenance Due Date Last Done Comments Men B Vaccine (1 of 2 - Standard) 2019 COVID-19 Vaccine (2023-2 5 season) 2023 07/27/2021, 06/18/2020, 05/28/2020 Influenza Vaccines (#1) 2024 11/14/19, 02/12/2019, 11/21/2017, Additional history exists DTaP,Tdap,and Td Vaccines (6 - Td or Tdap) 04/03/2025 04/03/2015, 2007, 04/29/2004, Additional history exists Hepatitis B Vaccines Completed 2003, 2003, 2003 HIB Vaccines Completed 04/29/2004, 07/09, 2003, Additional history exists Pneumococcal Vaccine Completed 04/29/2004, 2003, 2003 IPV Vaccines Completed 2007, 09/2003, 2003, Additional history exists MMR Vaccines Completed 01/15/2008, 01/15/2004 Varicella Vaccines Completed 01/15/2008, 01/15/2004 HPV Vaccines Completed 09/29/2016, 03/05/2016 Hepatitis A Vaccines Completed 03/27/2018, 03/14/19 18 Meningococcal Vaccine Completed 12/19/2019, 016 Procedures * Due to [place] state law, this organization might not be sharing sensitive test results. Procedure Name Priority Date/Time Associated Diagnosis Comments CHLAMYDIA AND GONORRHEA, AMPLIFIED Routine 11/27/2020 4:30 PM EDT Screening examination for bacterial and spirochetal disease from Last 3 Months or Most Recently Relevant to Health Maintenance Results * Due to [place] state law, this organization might not be sharing sensitive test results. * Chlamydia and Gonorrhoea, Amplified (11/27/2020 4:30 PM EDT) Chlamydia Trachomatis, DNA Probe NEGATIVE (NEG) [facility] Comment: No Chlamydia Trachomatis RNA detected in this patient's sample (REFERENCE RANGE/NORMAL VALUE: NOT DETECTED) Note: This test uses casing worker- mediated amplification method to detect rRNA from C. Trachomatis URINE GC AMP PROBE NEGATIVE (NEG) [facility] Comment: No Neisseria Gonorrhoeae RNA detected in this patient's sample (REFERENCE RANGE/NORMAL VALUE: NOT DETECTED) NOTE: This test uses casing worker-mediated amplification method to detect rRNA from N.Gonorrhoeae. A negative result does not preclude infection. In the case of a negative urine result, testing of an endocervical(female) or urethral (male) specimen is recommended if there is high clinical suspicion of infection. Due to very high sensitivity of Nucleic Acid Amplification Test, false positive results may occur. Therefore, specimen handling is extremely important. In patients in whom the disease is unlikely, additional sample for testing should be considered after an initial positive result. The performance characteristics of this test have not been evaluated in children. The Aptima Combo2 assay is not intended for the evaluation of suspected sexual abuse or for other medico-legal indications. The ordering provider should assess if the patient had consensual sex without risk of sexual abuse. Consult the [facility] if needed. Contact phone number . Therapeutic failure or success cannot be determined with the Aptima Combo2 assay since nucleic acid may persist following appropriate antimicrobial therapy. The Centers for Disease Control and Prevention (CDC) recommends confirmatory retesting using culture or a different nucleic acid amplification test when positive results occur, if indicated. Testing performed or reported by [facility], a Service of [facility], [address] [place] [address] Larry Winchester MD, Veterans' Counselor CLIA# [id number] Urine 11/27/2020 4:30 PM EDT 11/27/2020 10:02 PM EDT us Cathy Quinones MD LAB MICROBIOLOGY - GENERAL RIAZ MINER Final Result [facility] from Last 3 Months or Most Recently [place]vant [place] [id number] [employer] EPO OPEN ACCESS
== END 2024-09-24 07:01 | disposition home or self-care (01) ==
LOC: HO.LNP 07:00
PROVIDERS: Visit Provider Internal Medicine
DX: Z00.00 Encounter for general adult medical examination without abnormal findings (principal); D72.819 Decreased white blood cell count, unspecified; Z13.6 Encounter for screening for cardiovascular disorders
CPT/HCPCS: 80053; 80061; 81001; 85025

== ENCOUNTER 2024-11-12 10:30 | Outpatient (REF) | payer OTHER, SELFPAY ==
--- OUTSIDE RECORDS SUMMARY | 2023-12-06 04:00 | XMS_ITS ---
Author Organization Primo Acuna MD Address [address] [place], [place] [address] Care Team Providers Care Slot Machine Key Person Name Role Phone Primo Acuna Primary Care Provider Results Component Value Reference Range Notes Complete Blood Count Auto Di ff Reviewed date:12/06/2023 12:13:30 PM Interpretation: Performing Lab:[facility], [address] [place] [phone] Notes/Report: White Blood Count 4.7 4.8-10.8 X10*3/uL Red Blood Count 4.36 4.20-5.50 X10*6/uL Hemoglobin 11.4 12.0-16.0 g/dl Hematocrit 36.9 37.0-47.0 % Mean Corpuscular Volume 84.6 80.0-98.0 fL Mean Corpuscular Hemoglobin 26.1 27.0-33.0 pg Mean Corpuscular HGB Conc 30.9 31.0-35.0 g/dl Red Cell Distribution Width 14.2 11.0-16.0 % Platelet Count 283 160-400 X10*3/uL Mean Platelet Volume 10.7 9.4-12.3 fL Neutrophils Percent Auto 44.9 45-73 % Imm Gran Pct Auto 0.2 0.0-0.4 % Lymphocytes Percent Auto 41.4 20-40 % Monocytes Percent Auto 8.8 2-11 % Eosinophils Percent Auto 4.1 0-4 % Basophils Percent Auto 0.6 0-2 % NRBC Pct Auto 0.0 0.0-0.2 /100WBC Neutrophils Absolute Auto 2.1 2.0-8.3 x10*3/u L Imm Gran Abs Auto 0.01 0.00-0.03 X10*3/uL Lymphocytes Absolute Auto 1.9 1.2-4.9 X10*3/u L Monocytes Absolute Auto 0.4 0.1-1.2 X10*3/uL Eosinophils Absolute Auto 0.2 0.0-0.4 X10*3/u L Basophils Absolute Auto 0.0 0.0-0.2 X10*3/uL NRBC Abs Auto 0.000 0.0-0.012 X10*3/uL IRON PROFILE Reviewed date:12/06/2023 12:13:08 PM Interpretation: Performing Lab:[facility], [address] [place] [phone] Notes/Report: Iron 58 30-160 mcg/dL Total Iron Binding Capacity 358 228-428 mcg/d L Percent Iron Saturation 16 15-50 % Unsaturated Iron Binding 300 REASON FOR VISIT TIBC CBC Encounters Encounter Location Date Provider Diagnosis Primo Acuna MD [address] [place], [place] [address]te [address] [place] [phone] 12/06/2023 Primo Acuna Anemia D64.9 Assessments Encounter Date Diagnosis (ICD Code) Assessment Notes Treatment Notes Treatment Clinical Notes Section Notes 12/06/2023 Anemia (ICD-10 - D64.9) Plan Of Treatment Next Appt Details Provider Name:Primo shay, 09/26/2025 07:45:00 AM, [address] [place] [address], [phone], Provider Name:Primo shay, 10/03/2025 01:00:00 PM, [address] [place] [address], [phone], Progress Notes * Gennaro CARBALLOOB:2005 ( 19 yo F)Acc No.[id number]:12/06/2023 Progress Note Patient: Kandis LI Provider: Jolene Acuna MD :2005 A ge:18 Y S ex:Female Date:12/06/2023 Address:[address] [place], [place] [address], [id number] Subjective: * Chief Complaints: * 1 . TIB CBC. * Medical History: Objective: * Vitals: Assessment: * Assessment: 1. A nemia - D64.9 (Primary) Plan: * Treatment: * Procedure Codes: 3 6415 VENIPUNCT, ROUTINE* * * The named appointment provid er may or may not be the originator of this progress note, and it is not deemed complete until electronically signed by the appointment provider. Sign off status: Pending * Provider: Jolene Acuna MD Date: Generated for Giulia luna/Rico/Dlsmitting on: 12:27 PM EDT
--- OUTSIDE RECORDS SUMMARY | 2024-04-03 10:15 | XMS_ITS ---
Author Organization Primo Acuna MD Address [address] [place], [place] [id number] Care Team Providers Care Oracle Ebs Consultant Name Role Phone Primo Acuna Primary Care Provider [phone] Allergies No Known Allergies Results Component Value Reference Range Notes Tick-borne Disease Molecular Reviewed date:04/05/2024 04:13:42 PM Interpretation: Performing Lab:[facility], [address] [place] [phone] Notes/Report: Babesia Microti DNA, RT-PCR NOT DETECTED NOT DETECTED This test was developed and its analytical performance characteristics have been determined by [employer]. It has not been cleared or approved by the FDA. This assay has been validated pursuant to the CLIA regulations and is used for clinical purposes. THIS TEST WAS PERFORMED AT: [facility] [address] [place] [phone] DELMI LINDQUIST MD E.Chaffeensis DNA RT-PCR NOT DETECTED NOT DETECTED This test was developed and its analytical performance characteristics have been determined by [employer]. It has not been cleared or approved by the FDA. This assay has been validated pursuant to the CLIA regulations and is used for clinical purposes. THIS TEST WAS PERFORMED AT: [facility] [address] [place] [phone] DELMI LINDQUIST MD A. Phagocytphilium DNA,RT-PCR NOT DETECTED NOT DETECTE D This test was developed and its analytical performance characteristics have been determined by [employer]. It has not been cleared or approved by the FDA. This assay has been validated pursuant to the CLIA regulations and is used for clinical purposes. Lyme(Borrelia ssp)DNA RT-PCR NOT DETECTED NOT DETECTED This test was developed and its analytical performance characteristics have been determined by [employer]. It has not been cleared or approved by the FDA. This assay has been validated pursuant to the CLIA regulations and is used for clinical purposes. For additional information, please refer to https://[employer].LoopNet/faq/tpl499 (This link is being provided for informational/ educational purposes only.) THIS TEST WAS PERFORMED AT: [facility] [address] [place] [phone] DELMI LINDQUIST MD Borrelia Miyamotoi,DNA RT-PCR NOT DETECTED NOT DETECTE D This test was developed and its analytical performance characteristics have been determined by [employer]. It has not been cleared or approved by the FDA. This assay has been validated pursuant to the CLIA regulations and is used for clinical purposes. THIS TEST WAS PERFORMED AT: [facility] [address] [place] [phone] DELMI LINDQUIST MD Tick Mol. Panel Cmmt SEE NOTE A negative result does not exclude Borrelia infection as the concentration of the organism in blood may be low or non-existent in patients with Lyme disease, and may depend on timing of specimen collection from onset of symptoms. Clinical correlation is recommended and additional studies such as serologic testing may be indicated. THIS TEST WAS PERFORMED AT: [facility] [address] [place] [phone] DELMI LINDQUIST MD REASON FOR VISIT 6 month Medications Medication SIG (Take, Route, Fr equency, Duration) Notes Start Date End Date Status Melatonin 10 MG as directed Orally Active Social History Tobacco Use: Social History Observation Description Date Details (start date - stop date) Never Smoker NA - NA Tobacco Use/Smoking Question Answer Notes Patient is a nonsmoker Additional Findings: Tobacco Non-User Cu rrent non-smoker, currently using no form of tobacco Section Notes: has pains in various places not in joints but in muscles. not always in the same spot. is there to a degree. Vital Signs Blood pressure systolic 112 mm Hg 04/03/19 Blood pressure diastolic 66 mm Hg 025 Height 68 in 04/03/2024 Weight 137 lbs 04/03/2024 BMI 20.83 kg/m2 04/03/2024 weight is down 6 pounds [facility] e 8-20-24 Encounters Encounter Location Date Provider Diagnosis Primo Acuna MD [address] [place] [address] [place] [phone] 04/03/2024 Primo Acuna Anxiety F41.9 ; Leukopenia, unspecified type D72.819 and Myalgia M79.10 Assessments Encounter Date Diagnosis (ICD Code) Assessment Notes Treatment Notes Treatment Clinical Notes Section Notes 04/03/2024 Anxiety (ICD-10 - F41.9) stable. has opportunity to get conselling at school/ is doing well at present 04/03/2024 Leukopenia, unspecified type (ICD-10 - D72.819) is doing fine/ has improved 04/03/2024 Myalgia (ICD-10 - M79.10) Plan Of Treatment Treatment Notes Assessment Notes Anxiety stable. has opportun ity to get conselling at school/ is doing well at present Leukopenia, unspecified type is doing fi ne/ has improved Next Appt Details Provider Name:Primo shay, 09/26/2025 07:45:00 AM, [address] [place] [address], Suite [facility], [place], [place], [phone], Provider Name:Primo shay, 10/03/2025 01:00:00 PM, [address] [place] [address], Suite [facility], [place], [place], [phone], Progress Notes * Gennaro CARBALLOOB:2005 ( 19 yo F)Acc No.[id number]:04/03/2024 Progress Notes Patient: Kandis LI Provider: Jolene Acuna MD :2005 A ge:19 Y S ex:Female Date:04/03/2024 Address:[address] [place] [address] Romi [id number] Subjective: * Chief Complaints: * 6 month * HPI: S ymptom(s): patient is a 19 yo female here for 6 month follow up visit, not getting any therapy. depression if about the same. not going to [facility]. going to [facility]. working at [employer]. may get counselling at [facility]. * ROS: G eneral/Constitutional: Denies C hills. D enies F atigue. D enies F ever. D enies H eadache. E NT: Patient denies d ecreased sense of smell, any loss of taste, sore throat. D enies S ore throat. R espiratory: Denies C ough. D enies S hortness of breath at rest. D enies S hortness of breath with exertion. G astrointestinal: Denies D iarrhea. D enies N ausea. M usculoskeletal: Patient denies m uscle aches. P eripheral Vascular: Patient denies r ed and blue toes. * Medical History: * Surgical History: * Hospitalization/Major Diagno stic Procedure: * Social History: T obacco Use: T obacco Use/Smoking P atient is a n onsmoker, A dditional Findings: Tobacco Non-User C urrent non-smoker, currently using no form of tobacco. h as pains in various places not in joints but in muscles. not always in the same spot. is there to a degree. * Medications: T akingMelatonin 10 MG Capsule as directed Orally Medication List reviewed and reconciled with the patientTaking Melatonin 10 MG Capsule as directed Orally Medication List reviewed and reconciled with the patient * Allergies: N .K.D.A.yes[Allergies Verified] Objective: * Vitals: H t: 68, Wt: 137, BMI:20.83, BP:112/66, Wt-k.14. weight is down 6 pounds since 09-27-23. * Examination: G eneral Examination: GENERAL APPEARANCE: a lert, well hydrated, in no distress.? HEAD: n ormocephalic. SKIN: g ood turgor. HEART: n o murmurs, rubs, gallops, regular rate and rhythm.? LUNGS: n o wheezes, rales, rhonchi, good air movement, clear to auscultation bilaterally. Assessment: * Assessment: 1. A nxiety - F41.9 (Primary) 2 . L eukopenia, unspecified type - D72.819? 3. M yalgia - M79.10 Plan: * Treatment: 2. L eukopenia, unspecified type Notes: is doing fine/ has improved * Procedure Codes: 3 6415 VENIPUNCT, ROUTINE* * * Sign off status: Completed true * Provider: Jolene Acuna MD Date: 0 04/03/2024 Generated for [employer] jeremy/Rico/eTransmitting on: 1 12:28 PM EDT History and Physical Notes * HPI (History of Present Illness) Category Sub-Category Detail Notes Category Not es Symptom(s) patient is a 19 yo female here for 6 month follow up visit, not getting any therapy. depression if about the same. not going to [facility]. going to [facility]. working at [employer]. may get counselling at [facility]. Examination Category Sub-Category Detail Notes Category Not es General Examination GENERAL APPEARANCE: alert, w ell hydrated, in no distress HEAD: normocephalic HEART: no murmurs, rubs, ga llops, regular rate and rhythm LUNGS: no wheezes, rales, r honchi, good air movement, clear to auscultation bilaterally SKIN: good turgor
--- OUTSIDE RECORDS SUMMARY | 2024-09-24 03:00 | XMS_ITS ---
Author Organization Primo Acuna MD Address [address] [place], [place] [id number] Care Team Providers Care 3D Designer Name Role Phone Primo Acuna Primary Care Provider Results Component Value Reference Range Notes Complete Blood Count Auto Di ff Reviewed date:09/25/2024 09:46:41 AM Interpretation: Performing Lab:[facility], [address] [place] [phone] Notes/Report: White Blood Count 4.0 4.8-10.8 X10*3/uL Red Blood Count 4.00 4.20-5.50 X10*6/uL Hemoglobin 10.3 12.0-16.0 g/dl Hematocrit 33.6 37.0-47.0 % Mean Corpuscular Volume 84.0 80.0-98.0 fL Mean Corpuscular Hemoglobin 25.8 27.0-33.0 pg Mean Corpuscular HGB Conc 30.7 31.0-35.0 g/dl Red Cell Distribution Width 14.3 11.0-16.0 % Platelet Count 197 160-400 X10*3/uL Mean Platelet Volume 11.0 9.4-12.3 fL Neutrophils Percent Auto 37.8 45-73 % Imm Gran Pct Auto 0.3 0.0-0.4 % Lymphocytes Percent Auto 46.0 20-40 % Monocytes Percent Auto 10.1 2-11 % Eosinophils Percent Auto 5.0 0-4 % Basophils Percent Auto 0.8 0-2 % NRBC Pct Auto 0.0 0.0-0.2 /100WBC Neutrophils Absolute Auto 1.5 2.0-8.3 x10*3/u L Imm Gran Abs Auto 0.01 0.00-0.03 X10*3/uL Lymphocytes Absolute Auto 1.8 1.2-4.9 X10*3/u L Monocytes Absolute Auto 0.4 0.1-1.2 X10*3/uL Eosinophils Absolute Auto 0.2 0.0-0.4 X10*3/u L Basophils Absolute Auto 0.0 0.0-0.2 X10*3/uL NRBC Abs Auto 0.000 0.0-0.012 X10*3/uL Comprehensive [place]. Panel Fa st Reviewed date:09/24/2024 12:19:52 PM Interpretation: Performing Lab:[facility], [address] [place] [phone] Notes/Report: Sodium 140 135-145 mmol/L Potassium 4.0 3.3-5.1 mmol/L Chloride 106 96-108 mmol/L Carbon Dioxide 28 22-29 mmol/L Anion Gap 10 12-20 Blood Urea Nitrogen 13 9-16 mg/dL Creatinine 0.82 0.5-1.4 mg/dL Estimated Glomerular Filt Rate > 60 Chronic Kidney Disease: Estimated GFR < 60 mL/min/1.73m2 Severe Kidney Disease: Estimated GFR < 15 mL/min/1.73m2 Glucose Fasting 81 60-99 mg/dL Calcium 9.0 8.4-10.2 mg/dL Bilirubin Total 0.4 0.0-1.0 mg/dL Aspartate Amino Transferase 23 5-31 U/L Alanine Aminotransferase 14 0-31 U/L Total Protein 7.1 6.5-8.0 g/dL Albumin Level 4.5 3.5-5.0 g/dL Alkaline Phosphatase 42 39-117 U/L Lipid Panel Reviewed date:09/24/2024 12:20:30 PM Interpretation: Performing Lab:[address] [phone] Notes/Report: Triglycerides 40 <150 mg/dL Desirable Triglyceride: less than 150 mg/dL Borderline High Triglyceride 150-199 mg/dL High Triglyceride: 200-499 mg/dL Very High Triglyceride: greater than or equal to 5OO mg/dL Cholesterol 178 <200 mg/dL Desirable Cholesterol: less than 200 mg/dL Borderline High Cholesterol: 200-239 mg/dL High Cholesterol: greater than 239 mg/dL LDL Cholesterol Calculated 79 <100 mg/dL Desirable LDL: less than 100 mg/dL Near Optimal/Above Optimal LDL: 110-129 mg/dL Borderline High LDL: 130-159 mg/dL High LDL: 160-189 mg/dL Very High LDL: greater than or equal to 190 mg/dL HDL Cholesterol 91 >40 mg/dL Desirable HDL: greater than 40 mg/dL Note: This HDL assay may give artificially low results in patients with liver disease. UA ClnCatch+Micro w/rflx Cul t Reviewed date:09/24/2024 12:24:47 PM Interpretation: Performing Lab:[facility], [address] [place] [phone] Notes/Report: Urine, Clean Catch Color Urine Yellow Appearance Urine Clear PH 5.5 5.0-9.0 Glucose Urine UA Negative Negative mg/dL Urine Blood Negative Negative Specific [place] - Urine 1.025 1.005-1.025 Urine Protein Negative Neg-Trace mg/dL Urine Ketones Trace Negative mg/dL Nitrite Urine Negative Negative Leukocyte Esterase Urine Negative Negative RBC Urine 0-2 0-2 /HPF WBC Urine 0-5 0-5 /HPF Squamous Epithelial Cell Urine 6-10 0-2 /HPF Bacteria Urine Trace None Seen Hyaline Casts Urine 0-2 0-2 /LPF REASON FOR VISIT yearly fasting labs Encounters Encounter Location Date Provider Diagnosis Primo Acuna MD [address] [place] [address] [place] [phone] 09/24/2024 Primo Acuna Blood tests for routine general physical examination Z00.00 and Leukopenia, unspecified type D72.819 Assessments Encounter Date Diagnosis (ICD Code) Assessment Notes Treatment Notes Treatment Clinical Notes Section Notes 09/24/2024 Blood tests for routine general physical examination (ICD-10 - Z00.00) 09/24/2024 Leukopenia, unspecified type (ICD-10 - D72.819) Plan Of Treatment Next Appt Details Provider Name:Primo shay, 09/26/2025 07:45:00 AM, [address] [facility], [address], [place], [place], [phone], Provider Name:Primo shay, 10/03/2025 01:00:00 PM, [address] [facility], [address], [place], [phone], Progress Notes * Gennaro CARBALLOOB:2005 ( 19 yo F)Acc No.[id number]:09/24/2024 Progress Note Patient: Kandis LI Provider: Jolene Acuna MD :2005 A ge:19 Y S ex:Female Date:09/24/2024 Address:[address] [place] [address] , [id number] Subjective: * Chief Complaints: * 1 . Yearly fasting labs. * Medical History: Objective: * Vitals: Assessment: * Assessment: 1. B lood tests for routine general physical examination - Z00.00 (Primary) 2 .?Leukopenia, unspecified type - D72.819 Plan: * Treatment: 2. L eukopenia, unspecified type L AB: Complete Blood Count Auto Diff (Collection Date & Time - 09/24/2024 07:00 AM) L AB: Comprehensive [place]. Panel Fast (Collection Date & Time - 09/24/2024 07:00 AM) L AB: Lipid Panel (Collection Date & Time - 09/24/2024 07:00 AM) L AB: UA ClnCatch+Micro w/rflx Cult (Collection Date & Time - 09/24/2024 07:00 AM) * Procedure Codes: 3 6415 VENIPUNCT, ROUTINE* * * The named appointment provid er may or may not be the originator of this progress note, and it is not deemed complete until electronically signed by the appointment provider. Sign off status: Pending * Provider: Jolene Acuna MD Date: 0 09/24/2024 Generated for Stefani ng/Rico/eTransmitting on: 1 12:27 PM EDT
--- OUTSIDE RECORDS SUMMARY | 2024-10-01 06:30 | XMS_ITS ---
Author Organization Primo Acuna MD Address [address] [place], [place] [id number] Care Team Providers Care Light Rail Signal Technician Name Role Phone Primo Acuna Primary Care Provider Allergies No Known Allergies REASON FOR VISIT annual visit, Will repeat CBC 10-30-24 Medications Medication SIG (Take, Route, Fr equency, [...] Problem Status W/U Status Risk Notes Problem Dysthymia ([id number]) Dysthymia (F34.1) Active confirmed Vital Signs Blood pressure systolic 98 mm Hg 10/02/19 Blood pressure diastolic 60 mm Hg 025 Height 68 in 10/01/2024 Weight 141 lbs 10/01/2024 BMI 21.44 kg/m2 10/01/2024 weight is up 4 pounds since 04-03-24 Encounters Encounter Location Date Provider Diagnosis Primo Acuna MD [address] [place], [place] [phone] 10/01/2024 Primo Acuna Dysthymia F34.1 ; Encounter for general adult medical examination without abnormal findings Z00.00 ; Leukopenia, unspecified type D72.819 and Depression screening Z13.31 Assessments Encounter Date Diagnosis (ICD Code) Assessment Notes Treatment Notes Treatment Clinical Notes Section Notes 10/01/2024 Dysthymia (ICD-10 - F34.1) had been seeing counseller in past and didn't think it helped/ denies any suicidal ideations and felt that her depression is chronic and unchanged 10/01/2024 Encounter for general adult medical examination without abnormal findings (ICD-10 - Z00.00) Labs reviewed and discussed with patient 10/01/2024 Leukopenia, unspecified type (ICD-10 - D72.819) is a little lower 10/01/2024 Depression screening (ICD-10 - Z13.31) positive screening Plan Of Treatment Treatment Notes Assessment Notes Dysthymia had been seeing coun seller in past and didn't think it helped/ denies any suicidal ideations and felt that her depression is chronic and unchanged Encounter for general adult medical examination without abnormal findings Labs reviewed and discussed with patient Leukopenia, unspecified type is a little lower Depression screening positive screening Pending Test Test Name Order Date Complete Blood Count Auto Diff Next Appt Details Follow Up: 1 Year, Reason: Provider Name:Primo shay, 09/26/2025 07:45:00 AM, [address] [place] [address], [address], [phone], Provider Name:Primo shay, 10/03/2025 01:00:00 PM, [address] [place] [address], [place] [address], [place], [place], [phone], Progress Notes * Gennaro CARBALLOOB:2005 ( 19 yo F)Acc No.[id number]:10/01/2024 Progress Notes Patient: Kandis LI Provider: Jolene Acuna MD :2005 A ge:19 Y S ex:Female Date:10/01/2024 Address:[address] [place], [place] [phone] Subjective: * Chief Complaints: * A nnual visitWill repeat CBC 10-30-24 * HPI: D epression Screening: PHQ-9 L ittle interest or pleasure in doing things M ore than half the days, F eeling down, depressed, or hopeless M ore than half the days, T rouble falling or staying asleep, or sleeping too much N early every day, F eeling tired or having little energy M ore than half the days, P oor appetite or overeating M ore than half the days, F eeling bad about yourself or that you are a failure, or have let yourself or your family down S ever, T rouble concentrating on things, such as reading the newspaper or watching television S ever, M oving or speaking so slowly that other people could have noticed; or the opposite, being so fidgety or restless that you have been moving around a lot more than usual M ore than half the days, T houghts that you would be better off or of hurting yourself in some way S ever (Consider Suicide Assessment Risk), T otal Score 1 6, I nterpretation M oderately Severe Depression. I nterpretation and Intervention D epression Screening Findings P ositve - Review of PHQ-9 found positive for depression, F ollow-Up for Depression : Existing condition. C ommunication Needs: Communication Needs D oes the patient have a hearing impairment N o, D oes the patient have a vision impairment? Y es, I f yes, what is the vision impairment? G lasses, D oes the patient have a cognition impairment? N o. S SATHYA Questions: SDOH Questions I n the past year have you been worried about losing housing? N o, I n the past year have you or any family members you live with been unable to get any of the following when it was really needed? Check all that apply: N one. S ymptom(s): patient is a 19 [facility] of recent labs and follow up of chronic issues .feeling well. very busy. * Medical History: * Surgical History: * Hospitalization/Major Diagno stic Procedure: * Family History: F ather: alive 62 yrs. M other: alive 67 yrs. D aughter(s): diagnosed with Asthma.? Father- Healthy Mother Healthy. * Social History: T obacco Use: T obacco Use/Smoking P atient is a n onsmoker, A dditional Findings: Tobacco Non-User C urrent non-smoker, currently using no form of tobacco. D rugs/Alcohol: A lcohol Screen D id you have a drink containing alcohol in the past year? N o, P oints 0 , I nterpretation N egative. M iscellaneous: C affeine: yes, frequency:, 1-2 cups per day. Children: no. 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 Living with: family. Marital status: . Pets: cats: dogs: 16 chickens 2 goats bee Hive. Travel outside of the [place]: no. h as pains in various places not [...] Objective: * Vitals: H t: 68, Wt: 141, BMI:21.44, BP:98/60, Wt-k.96. weight is up 4 pounds since 04-03-24. * P ast Orders: L ab:Comprehensive [place]. Panel Fast (Order Date - 09/24/2024) (Collection Date & Time - 09/24/2024 07:00 AM) Value Reference Range Sodium 140 135-145 - mmol/L Bilirubin Total 0.4 0.0-1.0 - mg/dL Aspartate Amino Transferase 23 5-31 - U/L Alanine Aminotransferase 14 0-31 - U/L Total Protein 7.1 6.5-8.0 - g/dL Albumin Level 4.5 3.5-5.0 - g/dL Alkaline Phosphatase 42 39-117 - U/L Potassium 4.0 3.3-5.1 - mmol/L Chloride 106 96-108 - mmol/L Carbon Dioxide 28 22-29 - mmol/L Anion Gap 10 L 12-20 - Blood Urea Nitrogen 13 9-16 - mg/dL Creatinine 0.82 0.5-1.4 - mg/dL Estimated Glomerular Filt Rate > 60 - Glucose Fasting 81 60-99 - mg/dL Calcium 9.0 8.4-10.2 - mg/dL L ab:Lipid Panel (Order Date - 09/24/2024) (Collection Date & Time - 09/24/2024 07:00 AM) Value Reference Range Triglycerides 40 <150 - mg/dL Cholesterol 178 <200 - mg/dL LDL Cholesterol Calculated 79 <100 - mg/dL HDL Cholesterol 91 >40 - mg/dL L ab:UA ClnCatch+Micro w/rflx Cult (Order Date - 09/24/2024) (Collection Date & Time - 09/24/2024 07:00 AM) Value Reference Range Color Urine Yellow - Appearance Urine Clear - PH 5.5 5.0-9.0 - Glucose Urine UA Negative Negative - mg/dL Urine Blood Negative Negative - Specific [place] - Urine 1.025 1.005-1.025 - Urine Protein Negative Neg-Trace - mg/dL Urine Ketones Trace Negative - mg/dL Nitrite Urine Negative Negative - Leukocyte Esterase Urine Negative Negative - RBC Urine 0-2 0-2 - /HPF WBC Urine 0-5 0-5 - /HPF Squamous Epithelial Cell Urine 6-10 0-2 - /HP F Bacteria Urine Trace None Seen - Hyaline Casts Urine 0-2 0-2 - /LPF L ab:Complete Blood Count Auto Diff (Order Date - 09/24/2024) (Collection Date & Time - 09/24/2024 07:00 AM) Value Reference Range White Blood Count 4.0 L 4.8-10.8 - X10*3/uL Red Blood Count 4.00 L 4.20-5.50 - X10*6/uL Hemoglobin 10.3 L 12.0-16.0 - g/dl Hematocrit 33.6 L 37.0-47.0 - % Mean Corpuscular Volume 84.0 80.0-98.0 - fL Mean Corpuscular Hemoglobin 25.8 L 27.0-33.0 - pg Mean Corpuscular HGB Conc 30.7 L 31.0-35.0 - g/ dl Red Cell Distribution Width 14.3 11.0-16.0 - % Platelet Count 197 160-400 - X10*3/uL Mean Platelet Volume 11.0 9.4-12.3 - fL Neutrophils Percent Auto 37.8 L 45-73 - % Imm Gran Pct Auto 0.3 0.0-0.4 - % Lymphocytes Percent Auto 46.0 H 20-40 - % Monocytes Percent Auto 10.1 2-11 - % Eosinophils Percent Auto 5.0 H 0-4 - % Basophils Percent Auto 0.8 0-2 - % NRBC Pct Auto 0.0 0.0-0.2 - /100WBC Neutrophils Absolute Auto 1.5 L 2.0-8.3 - x10* 3/uL Imm Gran Abs Auto 0.01 0.00-0.03 - X10*3/uL Lymphocytes Absolute Auto 1.8 1.2-4.9 - X10* 3/uL Monocytes Absolute Auto 0.4 0.1-1.2 - X10*3/ uL Eosinophils Absolute Auto 0.2 0.0-0.4 - X10* 3/uL Basophils Absolute Auto 0.0 0.0-0.2 - X10*3/ uL NRBC Abs Auto 0.000 0.0-0.012 - X10*3/uL Assessment: * Assessment: 1. E ncounter for general adult medical examination without abnormal findings - Z00.00 (Primary) 2 . D ysthymia - F34.1 3 . L eukopenia, unspecified type - D72.819 4 . D epression screening - Z13.31 Plan: * Treatment: 2. D ysthymia L AB: Complete Blood Count Auto Diff (Ordered for 11/12/2024) Notes: had been seeing counseller in past and didn't think it helped/ denies any suicidal ideations and felt that her depression is chronic and unchanged 3. L eukopenia, unspecified type Notes: is a little lower 4. D epression screening Notes: positive screening * Procedure Codes: * Follow Up: 1 Year * * Sign off status: Completed true * Provider: Jolene Acuna MD Date: 0 10/01/2024 Generated for Giulia luna/Rico/Zoë on: 1 12:27 PM EDT History and Physical Notes * HPI (History of Present Illness) Category Sub-Category Detail Notes Category Not es Symptom(s) patient is a 19 yo female here for annula visit with review of recent labs and follow up of chronic issues .feeling well. very busy. Depression Screening PHQ-9 Little inte rest or pleasure in doing things: More than half the days Feeling down, depressed, or hopeless: Mo re than half the days Trouble falling or staying asleep, or sl eeping too much: Nearly every day Feeling tired or having little energy: M ore than half the days Poor appetite or overeating: More than h usp the days Feeling bad about yourself o r that you are a failure, or have let yourself or your family down: Several days Trouble concentrating on thi ngs, such as reading the newspaper or watching television: Several days Moving or speaking so slowly that other people could have noticed; or the opposite, being so fidgety or restless that you have been moving around a lot more than usual: More than half the days Thoughts that you would be b edouard off or of hurting yourself in some way: Several days (Consider Suicide Assessment Risk) Total Score: 16 Interpretation: Moderately Severe Depres alysa Interpretation and Intervention Depressi on Screening Findings: Positve - Review of PHQ-9 found positive for depression Follow-Up for Depression: : Existing con dition SDOH Questions SDOH Questions In the past year have you been worried about losing housing?: No In the past year have you or any family members you live with been unable to get any of the following when it was really needed? Check all that apply:: None Communication Needs Communication Needs Does the patient have a hearing impairment: No Does the patient have a vision impairmen t?: Yes If yes, what is the vision impairment?: Glasses Does the patient have a cognition impair ment?: No
--- OUTSIDE RECORDS SUMMARY | 2024-11-12 03:30 | XMS_ITS ---
Author Organization Primo Acuna MD Address [address] [place], [place] [id number] Care Team Providers Care Scuba Diving Instructor Name Role Phone Primo Acuna Primary Care Provider [phone] Results Component Value Reference Range Notes Complete Blood Count Auto Di ff (Not yet reviewed by provider) Interpretation: Performing Lab:[facility], [address] [place] [id number] Notes/Report: White Blood Count 4.8 4.8-10.8 X10*3/uL Red Blood Count 4.21 4.20-5.50 X10*6/uL Hemoglobin 11.1 12.0-16.0 g/dl Hematocrit 34.8 37.0-47.0 % Mean Corpuscular Volume 82.7 80.0-98.0 fL Mean Corpuscular Hemoglobin 26.4 27.0-33.0 pg Mean Corpuscular HGB Conc 31.9 31.0-35.0 g/dl Red Cell Distribution Width 14.6 11.0-16.0 % Platelet Count 211 160-400 X10*3/uL Mean Platelet Volume 11.4 9.4-12.3 fL Neutrophils Percent Auto 53.7 45-73 % Imm Gran Pct Auto 0.2 0.0-0.4 % Lymphocytes Percent Auto 32.1 20-40 % Monocytes Percent Auto 8.4 2-11 % Eosinophils Percent Auto 4.8 0-4 % Basophils Percent Auto 0.8 0-2 % NRBC Pct Auto 0.0 0.0-0.2 /100WBC Neutrophils Absolute Auto 2.6 2.0-8.3 x10*3/u L Imm Gran Abs Auto 0.01 0.00-0.03 X10*3/uL Lymphocytes Absolute Auto 1.5 1.2-4.9 X10*3/u L Monocytes Absolute Auto 0.4 0.1-1.2 X10*3/uL Eosinophils Absolute Auto 0.2 0.0-0.4 X10*3/u L Basophils Absolute Auto 0.0 0.0-0.2 X10*3/uL NRBC Abs Auto 0.000 0.0-0.012 X10*3/uL REASON FOR VISIT CBC W/ AUTO DIFF Encounters Encounter Location Date Provider Diagnosis Primo Acuna MD [address] [place] [address] [address] [place], [place] [phone] 11/12/2024 Primo Acuna Dysthymia F34.1 Assessments Encounter Date Diagnosis (ICD Code) Assessment Notes Treatment Notes Treatment Clinical Notes Section Notes 11/12/2024 Dysthymia (ICD-10 - F34.1) Plan Of Treatment Pending Test Test Name Order Date Complete Blood Count Auto Diff Next Appt Details Provider Name:Primo Pagepatricia laurita, 09/26/2025 07:45:00 AM, [address] [place] [address], [address], [place], [place], [phone], Provider Name:Primo Kayleen Camilopatricia laurita, 10/03/2025 01:00:00 PM, [address] [place] [address], [address], [place], [place], [phone], Progress Notes * Gennaro CARBALLOOB:2005 ( 19 yo F)Acc No.[id number]:11/12/2024 Progress Note Patient: Kandis LI Provider: Jolene Acuna MD :2005 A ge:19 Y S ex:Female Date:11/12/2024 Address:[address] [place] [address] [id number] Subjective: * Chief Complaints: * 1 . CBC W/ AUTO DIFF. * Medical History: Objective: * Vitals: Assessment: * Assessment: 1. D ysthymia - F34.1 Plan: * Treatment: * Procedure Codes: 3 6415 VENIPUNCT, ROUTINE* * * The named appointment provid er may or may not be the originator of this progress note, and it is not deemed complete until electronically signed by the appointment provider. Sign off status: Pending * Provider: Jolene Acuna MD Date: Generated for Giulia luna/Rico/Valentinitting on: 12:27 PM EDT
[2024-11-12 10:32] LABS: MANUAL DIFF FLAG NO
[2024-11-12 11:15] LABS: Hematocrit 34.8 % (37.0-47.0); Hemoglobin 11.1 g/dl (12.0-16.0); Imm Gran Abs Auto 0.01 X10*3/uL (0.00-0.03); Imm Gran Pct Auto 0.2 % (0.0-0.4); Lymphocytes Absolute Auto 1.5 X10*3/uL (1.2-4.9); Mean Corpuscular HGB Conc 31.9 g/dl (31.0-35.0); Mean Corpuscular Hemoglobin 26.4 pg (27.0-33.0); Mean Corpuscular Volume 82.7 fL (80.0-98.0); NRBC Abs Auto 0.000 X10*3/uL (0.0-0.012); NRBC Pct Auto 0.0 /100WBC (0.0-0.2); Platelet Count 211 X10*3/uL (160-400); Red Blood Count 4.21 X10*6/uL (4.20-5.50); White Blood Count 4.8 X10*3/uL (4.8-10.8)
--- OUTSIDE RECORDS SUMMARY | 2024-11-12 12:27 | XMS_ITS | Clinical Summary ---
Author Organization [facility] Address [address] [place] [address] Phone Care Team Providers Care Vertical Borer Name Role Phone Unavailable Primary Care Provider [...] Overview (11/27/2020): Has a therapist (Martha) at [facility]. Has a prescription for prn hydroxyzine and [...] Vaccine (1 of 2 - Standard) 2019 Influenza Vaccines (#1) 2024 11/14/19, 02/12/2019, 11/21/2017, Additional history exists COVID-19 Vaccine ( - 2024-2 6 season) 2024 07/27/2021, 06/18/2020, 05/28/2020 DTaP,Tdap,and Td Vaccines (6 - Td or [...] Completed 12/19/2019, 016 Procedures * Due to [place] state law, this organization might not be sharing sensitive test results. Procedure Name Priority Date/Time Associated Diagnosis Comments CHLAMYDIA AND GONORRHEA, AMPLIFIED Routine 11/27/2020 4:30 PM EDT Screening examination for bacterial and spirochetal disease from Last 3 Months or Most Recently Relevant to Health Maintenance Results * Due to [place] state law, this organization might not be sharing sensitive test results. * Chlamydia and Gonorrhoea, Amplified (11/27/2020 4:30 PM EDT) Chlamydia Trachomatis, DNA Probe NEGATIVE (NEG) [facility] Comment: No Chlamydia Trachomatis RNA detected in this patient's sample (REFERENCE RANGE/NORMAL VALUE: NOT DETECTED) Note: This test uses mucking machine operator- mediated amplification method to detect rRNA from C. Trachomatis URINE GC AMP PROBE NEGATIVE (NEG) [facility] Comment: No Neisseria Gonorrhoeae RNA detected in this patient's sample (REFERENCE RANGE/NORMAL VALUE: NOT DETECTED) NOTE: This test uses mucking machine operator-mediated amplification method to detect rRNA from N.Gonorrhoeae. [...] without risk of sexual abuse. Consult the [facility] if needed. Contact phone number . Therapeutic failure or success cannot be determined with the Aptima Combo2 assay since nucleic acid may persist following appropriate antimicrobial therapy. The Centers for Disease Control and Prevention (CDC) recommends confirmatory retesting using culture or a different nucleic acid amplification test when positive results occur, if indicated. Testing performed or reported by [facility], a Service of [facility], [address] [place] [address] Larry Winchester MD, Account Advisor CLIA# [id number] Urine 11/27/2020 4:30 PM EDT 11/27/2020 10:02 PM EDT us Cathy Quinones MD LAB MICROBIOLOGY - GENERAL RIAZ MINER Final Result [facility] from Last 3 Months or Most Recently Relevant [place] [address] [employer] EPO OPEN ACCESS
--- OUTSIDE RECORDS SUMMARY | 2024-11-12 12:27 | XMS_ITS | Patient Health Record ---
Author Organization Primo Acuna MD Address [address] [place], [place] [id number] Care Team Providers Care Windows Security Analyst Name Role Phone Primo Acuna Primary Care Provider Allergies No Known Allergies Results Component Value Reference Range Notes Complete Blood Count Auto Di ff Reviewed date:12/02/2023 09:47:15 AM Interpretation: Performing Lab:[facility], [address] [place] [phone] Notes/Report: White Blood Count 5.6 4.8-10.8 X10*3/uL [...] ff Reviewed date:12/06/2023 12:13:30 PM Interpretation: Performing Lab:[facility], [address] [place] [phone] Notes/Report: White Blood Count 4.7 4.8-10.8 X10*3/uL [...] PROFILE Reviewed date:12/06/2023 12:13:08 PM Interpretation: Performing Lab:[facility], [address] [place] [phone] Notes/Report: Iron 58 30-160 mcg/dL Total Iron Binding Capacity 358 228-428 mcg/d L Percent Iron Saturation 16 15-50 % Unsaturated Iron Binding 300 Tick-borne Disease Molecular Reviewed date:04/05/2024 04:13:42 PM Interpretation: Performing Lab:[facility], [address] [place] [phone] Notes/Report: Babesia Microti DNA, RT-PCR NOT DETECTED NOT DETECTED This test was developed and its analytical performance characteristics have been determined by [facility]. It has not been cleared or approved by the FDA. This assay has been validated pursuant to the CLIA regulations and is used for clinical purposes. THIS TEST WAS PERFORMED AT: [facility] [address] [place] [phone] DELMI LINDQUIST MD E.Chaffeensis DNA RT-PCR NOT DETECTED NOT DETECTED This test was developed and its analytical performance characteristics have been determined by [facility]. It has not been cleared or approved by the FDA. This assay has been validated pursuant to the CLIA regulations and is used for clinical purposes. THIS TEST WAS PERFORMED AT: [facility] [address] [place] [phone] DELMI LINDQUIST MD A. Phagocytphilium DNA,RT-PCR NOT DETECTED NOT DETECTED This test was developed and its analytical performance characteristics have been determined by [facility]. It has not been cleared or approved by the FDA. This assay has been validated pursuant to the CLIA regulations and is used for clinical purposes. Lyme(Borrelia ssp)DNA RT-PCR NOT DETECTED NOT DETECTED This test was developed and its analytical performance characteristics have been determined by [facility]. It has not been cleared or approved by the FDA. This assay has been validated pursuant to the CLIA regulations and is used for clinical purposes. For additional information, please refer to https://education.[employer]/faq/exz845 (This link is being provided for informational/ educational purposes only.) THIS TEST WAS PERFORMED AT: [facility] [address] [place] [phone] DELMI LINDQUIST MD Borrelia Miyamotoi,DNA RT-PCR NOT DETECTED NOT DETECTED This test was developed and its analytical performance characteristics have been determined by [facility]. It has not been cleared or approved by the FDA. This assay has been validated pursuant to the CLIA regulations and is used for clinical purposes. THIS TEST WAS PERFORMED AT: [facility] [address] [place] [phone] DELMI LINDQUIST MD Tick Mol. Panel Cmmt [...] be indicated. THIS TEST WAS PERFORMED AT: [facility] [address] [place] [phone] DELMI LINDQUIST MD Complete Blood Count Auto Di ff Reviewed date:09/25/2024 09:46:41 AM Interpretation: Performing Lab:[facility], [address] [place] [phone] Notes/Report: White Blood Count 4.0 4.8-10.8 X10*3/uL [...] NRBC Abs Auto 0.000 0.0-0.012 X10*3/uL Comprehensive [place]. Panel Fa st Reviewed date:09/24/2024 12:19:52 PM Interpretation: Performing Lab:[address] [phone] Notes/Report: Sodium 140 135-145 mmol/L Potassium 4.0 [...] Panel Reviewed date:09/24/2024 12:20:30 PM Interpretation: Performing Lab:[address] [phone] Notes/Report: Triglycerides 40 <150 mg/dL Desirable Triglyceride: [...] t Reviewed date:09/24/2024 12:24:47 PM Interpretation: Performing Lab:[facility], [address] [place] [phone] Notes/Report: Urine, Clean Catch Color Urine Yellow Appearance Urine Clear PH 5.5 5.0-9.0 Glucose Urine UA Negative Negative mg/dL Urine Blood Negative Negative Specific [place] - Urine 1.025 1.005-1.025 Urine Protein Negative Neg-Trace mg/dL Urine Ketones Trace Negative mg/dL Nitrite Urine Negative Negative Leukocyte Esterase Urine Negative Negative RBC Urine 0-2 0-2 /HPF WBC Urine 0-5 0-5 /HPF Squamous Epithelial Cell Urine 6-10 0-2 /HPF Bacteria Urine Trace None Seen Hyaline Casts Urine 0-2 0-2 /LPF Complete Blood Count Auto Di ff (Not yet reviewed by provider) Interpretation: Performing Lab:[facility], [address] [place] [phone] Notes/Report: White Blood Count 4.8 4.8-10.8 X10*3/uL [...] X10*3/uL NRBC Abs Auto 0.000 0.0-0.012 X10*3/uL Reason For Referral No Information Medications Medication [...] Problem Status W/U Status Risk Notes Problem 40327929 Anxiety (F41.9) Active confirmed Problem Dysthymia (24457583) Dysthymia (F34.1) Active confirmed Problem 40903818 Leukopenia, unspecified type (D72.819) Active confirmed Vital Signs Blood pressure diastolic 60 mm Hg 10/01/2024 jameel ght is up 4 pounds since 04-03-24 Height 68 in 10/01/2024 weight is up 4 pounds since 04-03-24 Blood pressure systolic 98 mm Hg 10/01/2024 weig ht is up 4 pounds since 04-03-24 Weight 141 lbs 10/01/2024 weight is up 4 pounds since 04-03-24 BMI 21.44 kg/m2 10/01/2024 weight is up 4 pounds since 04-03-24 Encounters Encounter Location Date Provider Diagnosis Primo Acuna MD [address] [place] [address] [phone] 10/01/2024 Primo Acuna Dysthymia F34.1 ; Encounter for general adult medical examination without abnormal findings Z00.00 ; Leukopenia, unspecified type D72.819 and Depression screening Z13.31 Primo Acuna MD [address] [place] [address] Drive [address] [place] [phone] 09/24/2024 Primo Acuna Blood tests for routine general physical examination Z00.00 and Leukopenia, unspecified type D72.819 Primo Acuna MD [address] [place] [id number] 11/29/2023 Primo Acuna Leukopenia, unspecified type D72.819 Primo Acuna MD [address] [place] [phone] 12/06/2023 Primo Acuna Anemia D64.9 Primo Acuna MD [address] [place] [address] [address] [phone] 11/12/2024 Primo Acuna Dysthymia F34.1 Primo Acuna MD [address] [place] [phone] 04/03/2024 Primo Acuna Anxiety F41.9 ; Leukopenia, [...] Z00.00) Labs reviewed and discussed with patient 09/24/2024 Blood tests for routine general physical examination (ICD-10 - Z00.00) 11/29/2023 Leukopenia, unspecified type (ICD-10 - D72.819) 12/06/2023 Anemia (ICD-10 - D64.9) 11/12/2024 Dysthymia (ICD-10 - F34.1) 04/03/2024 Anxiety (ICD-10 - F41.9) stable. has opportunity to get conselling at school/ is doing well at present 04/03/2024 Leukopenia, unspecified type (ICD-10 - D72.819) is doing fine/ has improved 10/01/2024 Leukopenia, unspecified type (ICD-10 - D72.819) is a little lower 09/24/2024 Leukopenia, unspecified type (ICD-10 - D72.819) 04/03/2024 Myalgia (ICD-10 - M79.10) 10/01/2024 Depression screening (ICD-10 - Z13.31) positive screening Plan Of Treatment Pending Test Test Name Order Date Complete Blood Count Auto Diff Next Appt Details Provider Name:Primo Beyer Jose ier, 09/26/2025 07:45:00 AM, [employer], [address], [phone], Provider Name:Primo Garcia ier, 10/03/2025 01:00:00 PM, [address] [place] [address], [address], [place], [place], [id number], Insurance Providers Payer Name Payer Address Payer Phone Subscriber Number Group Number Insured Name Patient Relationship to Insured Coverage Start Date Coverage End Date PASQUALE BABIN [id number] JADA Alan [phone] [id number] Kandis Hayden Self - patient is the insured
--- OUTSIDE RECORDS SUMMARY | 2024-11-12 12:28 | XMS_ITS | Clinical Summary ---
Author Organization [facility] Address [address] [place] [address] Care Team Providers Care Legal Internship Name Role Phone Unavailable Primary Care Provider [...] Pap Smear 2019 COVID-19 Vaccine ( season) 2024 07/27/2021, 06/18/2020, 05/28/2020 Influenza (#1) 2024 11/14/2019, [...] complete this topic Procedures * Due to [place] [employer] law, this organization might not be sharing negative HIV tests. Procedure Name Priority Date/Time Associated Diagnosis Comments XRAY CHEST, 2 VIEWS, PA & LATERAL FC Routine 12/23/2022 1:10 PM EST Subacute cough from Last 3 Months or Most Recently Relevant to Health Maintenance Results * Due to [place] [employer] law, this organization might not be sharing [...] Bronchial wall thickening suggesting bronchitis. Jin Chacon CRIMINAL ATTORNEY IMG XRAY NO CONTRAST ORDERABLES Final Result from Last 3 Months or Most Recently Relevant to Health Maintenance Insurance [facility]
--- OUTSIDE RECORDS SUMMARY | 2024-11-12 12:28 | XMS_ITS | Clinical Summary ---
Author Organization [facility] Address [address] [place] [phone] Phone Care Team Providers Care Milieu Technician Name Role Phone Pcp, Unknown Unavailable Unavailable Pcp, Unknown Unavailable Unavailable Social History Tobacco Use Types Packs/Day Years Used Date Smoking Tobacco: Never Assessed Education Answer Date Recorded Are you interested in more education? Not on ric e 06/04/2022 Are you concerned about learning? Not on file 06/04/2022 No 06/04/2022 No 06/04/2022 Digital Access Answer Date Recorded No 07/03/2022 No 07/03/2022 No 07/03/2022 Reliable internet access at home? Not on file 07/03/2022 Device with a working camera? Not on file Comments Unknown Sex and Gender Information Value Date Recorded Sex Assigned at Not on file Legal Sex Female 9:49 AM EDT Gender Identity Not on file Sexual Orientation Not on file Plan of Treatment Health Maintenance Due Date Last Done Comments DEPRESSION SCREENING 2015 SMOKING Hx and SMOKELESS TOBACCO SCREENING 01/14/2016 HPV VACCINES (2 - 2-dose series) 04/01/2017 09/29/2016 CHLAMYDIA SCREENING 2019 MENINGOCOCCAL VACCINES (B) (1 of 2 - Standard) 2019 ADOLESCENT UNIVERSAL LIPID SCREENING 01/14/2020 HEPATITIS C SCREENING 2021 HIV ONE-TIME SCREENING (18-65 YEARS) 2021 PAP SMEAR 01/14/2024 INFLUENZA VACCINE (#1) 2024 , 02/12/2019, 11/21/2017, Additional history exists COVID-19 VACCINE (3 - 5- season) 2024 06/18/2020, 05/28/2020 Adult Td,Tdap Booster 04/03/2025 04/03/2015 COMBINED DTaP,Tdap,Td (6 - Td or Tdap) 04/03/2025 04/03/2015, 2007, 04/29/2004, Additional history exists HIB VACCINES Completed 04/29/2004, 07/09, 2003, Additional history exists PNEUMOCOCCAL VACCINES (0-49 years) Aged Out 04/29/2004, 2003, 2003 No longer eligible based on patient's age to complete this topic MMR VACCINES Completed 01/15/2008, 01/15/2004 HEPATITIS A VACCINES Completed 03/27/2018, 03/14/19 18 MENINGOCOCCAL VACCINES (ACWY) Completed 12/19/2019, 04/03/2015 Medical Devices Not on file Insurance brands4friends O POS brands4friends O POS brands4friends O POS [employer] O POS CIGNA O POS [facility] brands4friends HMO POS CIGNA HMO POS [address] [place], [place] [address]O POS Member Subscriber Plan / Payer ( fective 2013-Present) Name:Kandis Carballo Relation to Subscriber:Child Name:WALT CARBALLO Date of :1900 (Home) Address: [address] [place] [address] Payer ID:[id number] (NA) Type:O Address: [address] [place] [id number] Care Teams Milieu Technician Relationship Specialty Start Date End Date Pcp, Unknown PCP - Pediatrics 05/27/20 Pcp, Unknown 11/25/17 Additional Source Comments The information contained in this document represents components of the legal health record. It is not the complete legal health record.[facility]
--- OUTSIDE RECORDS SUMMARY | 2024-11-12 12:28 | XMS_ITS | Encounter Summary ---
Author Organization [facility] Address [address] [place] [phone] Phone Care Team Providers Care Manager Water Name Role Phone Pcp, Unknown Primary Care Provider UnavailNaomie Quevedo MD Primary Care Provider Pcp, Unknown Unavailable Unavailable Pcp, Unknown Unavailable Unavailable Encounter Details Date Type Department Care Team (Late st Contact Info) Description 03/11/2017 Transcribe Orders [facility] Specimen Processing [address] [place] [address] Lian Cardoza, REMOTE SENSING TECHNOLOGIST [address] [place] [address] [email or web address] Fever and neutropenia (Primary Dx) Social History [...] PM EST) Influenza A Ag Negative Negative [facility] Influenza B Ag Negative Negative [facility] Other (Nasal) 03/11/2017 5:2 0 PM EST 03/11/2017 5:22 PM EST Lian Cardoza REMOTE SENSING TECHNOLOGIST MICROBIOLOGY - GENERAL ORDERA BLES Final Result [facility] [address] [place] [address] documented in this encounter Visit Diagnoses Diagnosis Fever and neutropenia- Primary documented in this encounter Care Teams Manager Water Relationship Specialty Start Date End Date Pcp, Unknown PCP - General 03/11/17 11/24/17 Naomie Richmond MD PCP - General Pediatrics 11/25/17 05/27/20 Pcp, Unknown PCP - Pediatrics 05/27/20 Pcp, Unknown 11/25/17 documented as of this encounter Additional Source Comments The information contained in this document represents components of the legal health record. It is not the complete legal health record.[facility]
== END 2024-11-12 10:31 | disposition home or self-care (01) ==
LOC: HO.LNP 10:30
PROVIDERS: Visit Provider Internal Medicine
DX: F34.1 Dysthymic disorder (principal); D72.819 Decreased white blood cell count, unspecified
CPT/HCPCS: 85025